=== PATIENT | male | born 1960 | race African-American/Black ===

== ENCOUNTER 2021-08-25 08:18 | Inpatient (IN) | payer MEDICAID, OTHER ==
[~2021-08-25] VITALS: Ht 182.9 cm; Wt 103.4 kg
[2021-08-25] MEDS ORDERED: SODIUM CHLORIDE 0.9% 1,000 ML IV ONE ×2 (09:15→10:45)
[2021-08-25 09:39] LABS: HEMATOCRIT. 36.5 % (42.0-52.0); HEMOGLOBIN. 11.4 g/dL (14.0-18.0); MEAN CORPUSCULAR HEMOGLOBIN 26.3 pg (28.0-32.0); MEAN CORPUSCULAR VOLUME 83.8 fL (80.0-94.0); MEAN PLATELET VOLUME 7.9 fl (7.4-10.4); PLATELET 559 x1000/uL (130-400); RED BLOOD CELL COUNT 4.35 mill/uL (4.7-6.1); RED CELL DISTRIBUTION WIDTH 15.2 % (11.6-14.6)
[2021-08-25 09:46] LABS: CHLORIDE 108 mEq/L (98-107)
[2021-08-25 10:27] LABS: PLATELET ESTIMATE INCREASED
[2021-08-25] MEDS ORDERED: MAGNESIUM/ALUMINUM HYDROXIDE/SIMETHICONE 30ML UDC PO PRN (12:15)
[2021-08-25] MEDS ORDERED: NITROGLYCERIN 0.4MG TABLET SL SL PRN (12:15)
[2021-08-25] MEDS ORDERED: TRAMADOL 50MG TABLET PO PRN (12:15)
[2021-08-25] MEDS ORDERED: ACETAMINOPHEN 325MG TABLET PO PRN (12:15)
[2021-08-25] MEDS ORDERED: CLONIDINE 0.1MG TABLET PO PRN (12:15)
[2021-08-25] MEDS ORDERED: GUAIFENESIN 200MG/10ML SUGAR FREE UDC PO PRN (12:15)
[2021-08-25] MEDS ORDERED: ONDANSETRON HCL 4MG/2ML INJ IV PRN (12:15)
[2021-08-25] MEDS ORDERED: SODIUM CHLORIDE 0.9% 1,000 ML IV SCH (12:15)
[2021-08-25] MEDS ORDERED: KETOROLAC 15MG/ML VIAL IV PRN (12:15)
[2021-08-25] MEDS ORDERED: IPRATROPIUM/ALBUTEROL 0.5-3(2.5)MG/3ML NEB NEB PRN (12:15)
[2021-08-25 12:59] LABS: BG BASE EXCESS 5.3 mmol/L (-2.0-2.0); BG CARBOXYHEMOGLOBIN 0.3 % (0.5-1.5); BG FRACTION INSPIRED OXYGEN 28; BG HCO3 ACT 30.8 mmol/L (22.0-26.0); BG METHEMOGLOBIN 0.3 % (0.0-1.5); BG OXYHEMOGLOBIN 95.4 % (94.0-97.0); BG PCO2 49.4 mmHg (35.0-45.0); BG PH 7.413 (7.350-7.450); BG PO2 84.6 mmHg (75.0-100.0); BG SAMPLE SITE LEFT BRACHIAL; BG TOTAL HEMOGLOBIN 11.9 g/dL (12.0-18.0); BG VENT MODE NASAL CANNULA
[2021-08-25] MEDS ORDERED: AZITHROMYCIN 500 MG in DEXT 5% WATER 250 ML IV SCH (13:00)
[2021-08-25 13:08] LABS: TOTAL IRON BINDING CAPACITY 178 ug/dL (250-450)
[2021-08-25] MEDS ORDERED: PAMIDRONATE DISODIUM 90 MG in SODIUM CHLORIDE 0.9% 500 ML IV ONE (13:30)
[2021-08-25 14:49] LABS: FOLIC ACID (FOLATE) SERUM 11.5 ng/mL (>5.38)
[2021-08-25] MEDS ORDERED: CEFTRIAXONE 1 G PREMIX 50 ML IV SCH (15:00)
[2021-08-25 15:09] LABS: CREATINE KINASE 97 IU/L (39-308); CREATINE KINASE MB FRACTION < 1.0 ng/mL (0.5-3.6)
[2021-08-25] MEDS: SODIUM CHLORIDE 0.9% 1,000 ML IV SCH (15:24)
[2021-08-25 15:59] LABS: *AMPHETAMINES SCREEN URINE NEGATIVE (NEGATIVE)
[2021-08-25 16:00] LABS: *BARBITURATES SCREEN URINE NEGATIVE (NEGATIVE); *BENZODIAZEPINES SCREEN URINE NEGATIVE (NEGATIVE); *COCAINE SCREEN URINE NEGATIVE (NEGATIVE); CANNABINOID URINE SCREEN NEGATIVE (NEGATIVE); METHADONE URINE SCREEN NEGATIVE (NEGATIVE); OPIATES URINE SCREEN NEGATIVE (NEGATIVE); PHENCYCLIDINE URINE SCREEN NEGATIVE (NEGATIVE)
[2021-08-25] MEDS ORDERED: NALOXONE HCL 0.4MG/ML VIAL IV PRN (16:00)
[2021-08-25] MEDS ORDERED: SODIUM CHLORIDE 0.9% 1000ML BAG (SEPSIS BOLUS) IV NR (17:00)
[2021-08-25] MEDS ORDERED: ENOXAPARIN 40MG/0.4ML SYR SUBCUT SCH (18:00)
[2021-08-25 18:50] VITALS: BP 125/63
[2021-08-25 20:00] VITALS: BP_SYST 100; BP_SYST 125; BP_DIAS 62; BP_DIAS 63
[2021-08-25] MEDS: ASCORBIC ACID 500 MG TABLET PO SCH (22:29)
[2021-08-25] MEDS: FAMOTIDINE 20MG TABLET PO SCH (22:29)
[2021-08-26] VITALS (7 sets, daily range): BP systolic 100–147; BP diastolic 60–90
[2021-08-26] MEDS: ENOXAPARIN 40MG/0.4ML SYR SUBCUT SCH (05:12)
[2021-08-26] MEDS: CHOLECALCIFEROL (D3) 1000 UNIT TABLET PO SCH (09:32)
[2021-08-26] MEDS: ASCORBIC ACID 500 MG TABLET PO SCH ×2 (09:33→21:04)
[2021-08-26] MEDS: FAMOTIDINE 20MG TABLET PO SCH ×2 (09:33→20:16)
[2021-08-26] MEDS: DOCUSATE SODIUM 100MG CAPSULE PO PRN (09:33)
[2021-08-26] MEDS: ASPIRIN 325MG EC TABLET PO SCH (09:33)
[2021-08-26] MEDS: ZINC SULFATE 220 MG ( 50 ) CAPSULE PO SCH (09:38)
[2021-08-26] MEDS ORDERED: INFLUENZA VACCINE 05/PF 0.5 ML SYRINGE IM ONE (11:00)
[2021-08-26 11:09] LABS: HEMATOCRIT. 32.6 % (42.0-52.0); HEMOGLOBIN. 10.4 g/dL (14.0-18.0); MEAN CORPUSCULAR HEMOGLOBIN 26.5 pg (28.0-32.0); MEAN CORPUSCULAR VOLUME 82.9 fL (80.0-94.0); MEAN PLATELET VOLUME 8.4 fl (7.4-10.4); PLATELET 504 x1000/uL (130-400); RED BLOOD CELL COUNT 3.93 mill/uL (4.7-6.1); RED CELL DISTRIBUTION WIDTH 15.6 % (11.6-14.6)
[2021-08-26 11:16] LABS: CHLORIDE 114 mEq/L (98-107)
[2021-08-26 11:23] LABS: PHOSPHORUS 1.9 mg/dL (2.5-4.9)
[2021-08-26 11:25] LABS: CREATINE KINASE 132 IU/L (39-308)
[2021-08-26 11:26] LABS: CREATINE KINASE MB FRACTION < 1.0 ng/mL (0.5-3.6)
[2021-08-26] MEDS: SODIUM CHLORIDE 0.9% 1,000 ML IV SCH ×2 (13:35→21:55)
[2021-08-26] MEDS: CEFTRIAXONE 1,000 MG in DEXTROSE 5% WATER 50 ML IV SCH (13:36)
[2021-08-26] MEDS: AZITHROMYCIN 500 MG in DEXT 5% WATER 250 ML IV SCH (13:36)
[2021-08-26 16:11] LABS: PLATELET ESTIMATE INCREASED
[2021-08-27] VITALS: BP 108/77
[2021-08-27 04:00] VITALS: BP 101/75
[2021-08-27] MEDS: ENOXAPARIN 40MG/0.4ML SYR SUBCUT SCH (05:25)
[2021-08-27 07:09] LABS: CHLORIDE 117 mEq/L (98-107)
[2021-08-27 07:14] LABS: PHOSPHORUS 1.4 mg/dL (2.5-4.9)
[2021-08-27 08:00] VITALS: BP 112/72
[2021-08-27 08:08] LABS: HEMATOCRIT. 32.3 % (42.0-52.0); HEMOGLOBIN. 10.1 g/dL (14.0-18.0); MEAN CORPUSCULAR HEMOGLOBIN 25.9 pg (28.0-32.0); MEAN CORPUSCULAR VOLUME 82.6 fL (80.0-94.0); MEAN PLATELET VOLUME 8.6 fl (7.4-10.4); PLATELET 447 x1000/uL (130-400); RED BLOOD CELL COUNT 3.91 mill/uL (4.7-6.1); RED CELL DISTRIBUTION WIDTH 15.3 % (11.6-14.6)
[2021-08-27] MEDS ORDERED: POTASSIUM CHLORIDE INJ 40 MEQ in DEXT 5% WATER 250 ML IV ONE (08:45)
[2021-08-27] MEDS: CHOLECALCIFEROL (D3) 1000 UNIT TABLET PO SCH (09:00)
[2021-08-27] MEDS: ASPIRIN 325MG EC TABLET PO SCH (09:00)
[2021-08-27] MEDS: ZINC SULFATE 220 MG ( 50 ) CAPSULE PO SCH (09:00)
[2021-08-27] MEDS: FAMOTIDINE 20MG TABLET PO SCH ×2 (09:00→21:09)
[2021-08-27] MEDS: SODIUM CHLORIDE 0.45% 1,000 ML IV SCH ×2 (09:00→16:31)
[2021-08-27] MEDS: ASCORBIC ACID 500 MG TABLET PO SCH ×2 (09:00→21:09)
[2021-08-27] MEDS ORDERED: BARIUM SULFATE 176 GM SUSP.RECON ONE (09:27)
[2021-08-27] MEDS ORDERED: SODIUM CHLORIDE 0.45% 1,000 ML IV SCH (09:30)
[2021-08-27] MEDS ORDERED: MAGNESIUM 2 G PREMIX 50 ML IV NR (11:00)
[2021-08-27] MEDS ORDERED: POTASSIUM PHOS,M-BASIC-D-BASIC 30 MMOL in DEXT 5% WATER 500 ML IV NR (11:00)
[2021-08-27 11:08] LABS: PLATELET ESTIMATE SLIGHTLY INCREASED
[2021-08-27 12:00] VITALS: BP 120/80
[2021-08-27 16:00] VITALS: BP 128/88
[2021-08-27] MEDS: CEFTRIAXONE 1,000 MG in DEXTROSE 5% WATER 50 ML IV SCH (16:30)
[2021-08-27] MEDS: AZITHROMYCIN 500 MG in DEXT 5% WATER 250 ML IV SCH (18:28)
[2021-08-27] MEDS: DILTIAZEM HCL 30MG TABLET PO SCH (18:34)
[2021-08-27] MEDS: KCL 20MEQ/100ML PREMIX 100 ML IV SCH (19:48)
[2021-08-27 20:00] VITALS: BP 109/70
[2021-08-27] MEDS: ACETAMINOPHEN 325MG TABLET PO PRN (21:09)
[2021-08-27] MEDS: ZOLPIDEM TARTRATE 5MG TABLET PO PRN (22:19)
[2021-08-28] VITALS: BP 115/66
[2021-08-28] MEDS: DILTIAZEM HCL 30MG TABLET PO SCH ×3 (00:16→12:00)
[2021-08-28] MEDS: SODIUM CHLORIDE 0.45% 1,000 ML IV SCH ×3 (00:22→17:45)
[2021-08-28 04:00] VITALS: BP 108/74
[2021-08-28] MEDS: ENOXAPARIN 40MG/0.4ML SYR SUBCUT SCH (06:01)
[2021-08-28] MEDS: KCL 20MEQ/100ML PREMIX 100 ML IV SCH (06:46)
[2021-08-28 07:16] LABS: CHLORIDE 115 mEq/L (98-107)
[2021-08-28 07:25] LABS: HEMATOCRIT. 31.9 % (42.0-52.0); HEMOGLOBIN. 10.2 g/dL (14.0-18.0); MEAN CORPUSCULAR HEMOGLOBIN 26.4 pg (28.0-32.0); MEAN CORPUSCULAR VOLUME 82.5 fL (80.0-94.0); MEAN PLATELET VOLUME 8.6 fl (7.4-10.4); PLATELET 388 x1000/uL (130-400); RED BLOOD CELL COUNT 3.87 mill/uL (4.7-6.1); RED CELL DISTRIBUTION WIDTH 15.8 % (11.6-14.6)
[2021-08-28 07:40] LABS: PHOSPHORUS 2.2 mg/dL (2.5-4.9)
[2021-08-28 08:00] VITALS: BP 120/70
[2021-08-28] MEDS ORDERED: ASPIRIN 81MG EC TABLET PO SCH (09:00)
[2021-08-28] MEDS: ASCORBIC ACID 500 MG TABLET PO SCH ×2 (09:06→20:45)
[2021-08-28] MEDS: CHOLECALCIFEROL (D3) 1000 UNIT TABLET PO SCH (09:06)
[2021-08-28] MEDS: FAMOTIDINE 20MG TABLET PO SCH ×2 (09:06→20:45)
[2021-08-28] MEDS: ZINC SULFATE 220 MG ( 50 ) CAPSULE PO SCH (09:06)
[2021-08-28] MEDS ORDERED: POTASSIUM CHLORIDE 20MEQ/PACKET PO SCH (10:00)
[2021-08-28] MEDS ORDERED: POTASSIUM PHOS,M-BASIC-D-BASIC 15 MMOL in DEXT 5% WATER 245 ML IV SCH (11:00)
[2021-08-28 12:00] VITALS: BP 108/64
[2021-08-28] MEDS: CEFTRIAXONE 1,000 MG in DEXTROSE 5% WATER 50 ML IV SCH (15:47)
[2021-08-28 16:00] VITALS: BP 109/66
[2021-08-28] MEDS: ENOXAPARIN 80MG/0.8ML SYR SUBCUT SCH (16:48)
[2021-08-28 17:08] LABS: PLATELET ESTIMATE NORMAL
[2021-08-28] MEDS: AZITHROMYCIN 500 MG in DEXT 5% WATER 250 ML IV SCH (17:44)
[2021-08-28] MEDS: DILTIAZEM HCL 60MG TABLET PO SCH (18:00)
[2021-08-28 20:00] VITALS: BP_SYST 145
[2021-08-28] MEDS: ZOLPIDEM TARTRATE 5MG TABLET PO PRN (20:45)
[2021-08-29] VITALS: BP 121/68
[2021-08-29] MEDS: DILTIAZEM HCL 60MG TABLET PO SCH ×4 (00:30→18:00)
[2021-08-29 04:00] VITALS: BP 123/64
[2021-08-29] MEDS: ENOXAPARIN 80MG/0.8ML SYR SUBCUT SCH ×2 (05:28→18:19)
[2021-08-29] MEDS: SODIUM CHLORIDE 0.45% 1,000 ML IV SCH ×3 (05:41→17:00)
[2021-08-29 08:00] VITALS: BP 110/73
[2021-08-29] MEDS: ZINC SULFATE 220 MG ( 50 ) CAPSULE PO SCH (09:00)
[2021-08-29] MEDS: FAMOTIDINE 20MG TABLET PO SCH ×2 (09:00→19:48)
[2021-08-29] MEDS: ASCORBIC ACID 500 MG TABLET PO SCH ×2 (09:00→19:48)
[2021-08-29] MEDS: CHOLECALCIFEROL (D3) 1000 UNIT TABLET PO SCH (09:00)
[2021-08-29 11:53] LABS: BASOPHILS % 0.2 % (0.0-2.0); EOSINOPHILS % 0.6 % (0.0-5.0); HEMATOCRIT. 31.8 % (42.0-52.0); HEMOGLOBIN. 9.9 g/dL (14.0-18.0); LYMPHOCYTES % 7.3 % (20.0-50.0); MEAN CORPUSCULAR HEMOGLOBIN 25.4 pg (28.0-32.0); MEAN CORPUSCULAR VOLUME 81.8 fL (80.0-94.0); MEAN PLATELET VOLUME 8.5 fl (7.4-10.4); MONOCYTES % 9.1 % (2.0-8.0); NEUTROPHILS % 82.8 % (40.0-76.0); PLATELET 387 x1000/uL (130-400); RED BLOOD CELL COUNT 3.89 mill/uL (4.7-6.1); RED CELL DISTRIBUTION WIDTH 15.8 % (11.6-14.6)
[2021-08-29 12:00] VITALS: BP 106/72
[2021-08-29 12:06] LABS: CHLORIDE 114 mEq/L (98-107)
[2021-08-29 12:12] LABS: PHOSPHORUS 1.7 mg/dL (2.5-4.9)
[2021-08-29] MEDS: CEFTRIAXONE 1,000 MG in DEXTROSE 5% WATER 50 ML IV SCH (14:01)
[2021-08-29 16:00] VITALS: BP 112/75
[2021-08-29] MEDS: AZITHROMYCIN 500 MG in DEXT 5% WATER 250 ML IV SCH (18:19)
[2021-08-29 20:00] VITALS: BP 112/59
[2021-08-29] MEDS ORDERED: POTASSIUM PHOS,M-BASIC-D-BASIC 30 MMOL in DEXT 5% WATER 500 ML IV NR (21:00)
[2021-08-30] VITALS: BP 105/68
[2021-08-30 00:34] LABS: CLARITY URINE CLEAR (CLEAR); COLOR URINE YELLOW (YELLOW); KETONES URINE TRACE (NEGATIVE); LEUKOCYTE ESTERASE URINE NEGATIVE (NEGATIVE); NITRITE URINE NEGATIVE (NEGATIVE); OCCULT BLOOD URINE NEGATIVE (NEGATIVE); PROTEIN URINE TRACE (NEGATIVE); SPECIFIC GRAVITY URINE 1.022 (1.005-1.030)
[2021-08-30 04:00] VITALS: BP 117/62
[2021-08-30] MEDS: DILTIAZEM HCL 60MG TABLET PO SCH ×4 (05:44→16:36)
[2021-08-30 08:00] VITALS: BP 103/56
[2021-08-30 08:05] LABS: INR 1.4; PROTHROMBIN TIME 14.4 sec (9.6-11.0)
[2021-08-30 08:07] LABS: HEMOGLOBIN. 9.8 g/dL (14.0-18.0); MEAN CORPUSCULAR HEMOGLOBIN 26.1 pg (28.0-32.0); MEAN CORPUSCULAR VOLUME 82.3 fL (80.0-94.0); MEAN PLATELET VOLUME 8.5 fl (7.4-10.4); PLATELET 384 x1000/uL (130-400); RED BLOOD CELL COUNT 3.77 mill/uL (4.7-6.1); RED CELL DISTRIBUTION WIDTH 15.9 % (11.6-14.6)
[2021-08-30 08:17] LABS: CHLORIDE 109 mEq/L (98-107)
[2021-08-30] MEDS: ENOXAPARIN 80MG/0.8ML SYR SUBCUT SCH ×2 (08:30→17:40)
[2021-08-30] MEDS: ZINC SULFATE 220 MG ( 50 ) CAPSULE PO SCH (08:30)
[2021-08-30] MEDS: ASCORBIC ACID 500 MG TABLET PO SCH ×2 (08:31→21:51)
[2021-08-30] MEDS: FAMOTIDINE 20MG TABLET PO SCH ×2 (08:31→21:51)
[2021-08-30] MEDS: CHOLECALCIFEROL (D3) 1000 UNIT TABLET PO SCH (08:31)
[2021-08-30 08:34] LABS: PHOSPHORUS 1.8 mg/dL (2.5-4.9)
[2021-08-30] MEDS: SODIUM CHLORIDE 0.45% 1,000 ML IV SCH ×3 (09:00→17:40)
[2021-08-30] MEDS ORDERED: POTASSIUM PHOS,M-BASIC-D-BASIC 15 MMOL in DEXT 5% WATER 245 ML IV SCH (11:00)
[2021-08-30 12:00] VITALS: BP 121/82
[2021-08-30 12:13] LABS: PLATELET ESTIMATE NORMAL
[2021-08-30] MEDS ORDERED: BARIUM SULFATE 176 GM SUSP.RECON ONE (13:03)
[2021-08-30] MEDS: CEFTRIAXONE 1,000 MG in DEXTROSE 5% WATER 50 ML IV SCH (15:08)
[2021-08-30 16:00] VITALS: BP 119/82
[2021-08-30 20:04] VITALS: BP 118/69
[2021-08-31] VITALS (7 sets, daily range): BP systolic 100–148; BP diastolic 56–69
[2021-08-31] MEDS: SODIUM CHLORIDE 0.45% 1,000 ML IV SCH ×3 (02:05→18:35)
[2021-08-31] MEDS: DILTIAZEM HCL 60MG TABLET PO SCH ×4 (02:05→18:33)
[2021-08-31] MEDS: ENOXAPARIN 80MG/0.8ML SYR SUBCUT SCH ×2 (05:49→18:33)
[2021-08-31 08:29] LABS: HEMATOCRIT. 29.3 % (42.0-52.0); HEMOGLOBIN. 9.6 g/dL (14.0-18.0); MEAN CORPUSCULAR HEMOGLOBIN 26.7 pg (28.0-32.0); MEAN CORPUSCULAR VOLUME 81.3 fL (80.0-94.0); MEAN PLATELET VOLUME 8.9 fl (7.4-10.4); PLATELET 354 x1000/uL (130-400); RED CELL DISTRIBUTION WIDTH 15.6 % (11.6-14.6)
[2021-08-31 09:19] LABS: CHLORIDE 108 mEq/L (98-107)
[2021-08-31 09:25] LABS: PHOSPHORUS 1.4 mg/dL (2.5-4.9)
[2021-08-31] MEDS: CHOLECALCIFEROL (D3) 1000 UNIT TABLET PO SCH (10:22)
[2021-08-31] MEDS: ZINC SULFATE 220 MG ( 50 ) CAPSULE PO SCH (10:22)
[2021-08-31] MEDS: FAMOTIDINE 20MG TABLET PO SCH ×2 (10:22→22:00)
[2021-08-31] MEDS: THIAMINE HCL 100MG TABLET PO SCH (10:22)
[2021-08-31] MEDS: ASCORBIC ACID 500 MG TABLET PO SCH ×2 (10:22→22:00)
[2021-08-31] MEDS ORDERED: POTASSIUM PHOS,M-BASIC-D-BASIC 30 MMOL in SODIUM CHLORIDE 0.9% 500 ML IV SCH (12:00)
[2021-08-31] MEDS: ACETAMINOPHEN 325MG TABLET PO PRN (12:54)
[2021-08-31] MEDS: DIGOXIN 500MCG/2ML AMP IV PRN (14:50)
[2021-08-31 22:43] LABS: PLATELET ESTIMATE NORMAL
[2021-09-01] VITALS: BP 131/76
[2021-09-01] MEDS: DILTIAZEM HCL 60MG TABLET PO SCH ×4 (00:38→19:08)
[2021-09-01] MEDS: SODIUM CHLORIDE 0.45% 1,000 ML IV SCH ×2 (00:39→10:07)
[2021-09-01 04:00] VITALS: BP 119/52
[2021-09-01] MEDS: ENOXAPARIN 80MG/0.8ML SYR SUBCUT SCH ×2 (06:37→19:09)
[2021-09-01 07:52] LABS: BASOPHILS % 0.4 % (0.0-2.0); EOSINOPHILS % 0.9 % (0.0-5.0); HEMATOCRIT. 31.3 % (42.0-52.0); HEMOGLOBIN. 10.2 g/dL (14.0-18.0); LYMPHOCYTES % 7.8 % (20.0-50.0); MEAN CORPUSCULAR HEMOGLOBIN 26.4 pg (28.0-32.0); MEAN CORPUSCULAR VOLUME 81.2 fL (80.0-94.0); MEAN PLATELET VOLUME 9.2 fl (7.4-10.4); NEUTROPHILS % 79.9 % (40.0-76.0); PLATELET 371 x1000/uL (130-400); RED BLOOD CELL COUNT 3.85 mill/uL (4.7-6.1); RED CELL DISTRIBUTION WIDTH 15.6 % (11.6-14.6)
[2021-09-01 08:00] VITALS: BP 107/63
[2021-09-01 08:02] LABS: CHLORIDE 106 mEq/L (98-107)
[2021-09-01 08:10] LABS: PHOSPHORUS 1.2 mg/dL (2.5-4.9)
[2021-09-01] MEDS: CHOLECALCIFEROL (D3) 1000 UNIT TABLET PO SCH (10:07)
[2021-09-01] MEDS: ZINC SULFATE 220 MG ( 50 ) CAPSULE PO SCH (10:08)
[2021-09-01] MEDS: ASCORBIC ACID 500 MG TABLET PO SCH ×2 (10:08→21:00)
[2021-09-01] MEDS: FAMOTIDINE 20MG TABLET PO SCH ×2 (10:08→21:00)
[2021-09-01] MEDS: THIAMINE HCL 100MG TABLET PO SCH (10:08)
[2021-09-01 12:00] VITALS: BP 124/75
[2021-09-01] MEDS ORDERED: POTASSIUM PHOS,M-BASIC-D-BASIC 30 MMOL in SODIUM CHLORIDE 0.9% 500 ML IV SCH (14:00)
[2021-09-01 16:00] VITALS: BP 125/79
[2021-09-01 20:00] VITALS: BP 124/66
[2021-09-02] VITALS: BP 137/88
[2021-09-02] MEDS: DILTIAZEM HCL 60MG TABLET PO SCH ×4 (00:31→18:05)
[2021-09-02] MEDS: SODIUM CHLORIDE 0.45% 1,000 ML IV SCH (00:31)
[2021-09-02 04:00] VITALS: BP 129/70
[2021-09-02] MEDS: ENOXAPARIN 80MG/0.8ML SYR SUBCUT SCH ×2 (06:06→18:06)
[2021-09-02 06:43] LABS: HEMATOCRIT. 27.7 % (42.0-52.0); HEMOGLOBIN. 9.1 g/dL (14.0-18.0); MEAN CORPUSCULAR HEMOGLOBIN 26.7 pg (28.0-32.0); MEAN CORPUSCULAR VOLUME 81.4 fL (80.0-94.0); MEAN PLATELET VOLUME 8.8 fl (7.4-10.4); PLATELET 353 x1000/uL (130-400); RED BLOOD CELL COUNT 3.41 mill/uL (4.7-6.1); RED CELL DISTRIBUTION WIDTH 15.8 % (11.6-14.6)
[2021-09-02 07:49] LABS: CHLORIDE 106 mEq/L (98-107)
[2021-09-02 08:00] VITALS: BP 119/77
[2021-09-02 08:05] LABS: PHOSPHORUS 1.5 mg/dL (2.5-4.9)
[2021-09-02] MEDS: ASCORBIC ACID 500 MG TABLET PO SCH ×2 (09:55→21:20)
[2021-09-02] MEDS: ZINC SULFATE 220 MG ( 50 ) CAPSULE PO SCH (09:55)
[2021-09-02] MEDS: FAMOTIDINE 20MG TABLET PO SCH ×2 (09:55→21:20)
[2021-09-02] MEDS: THIAMINE HCL 100MG TABLET PO SCH (09:55)
[2021-09-02] MEDS ORDERED: CEFAZOLIN 1000MG PREMIX 50 ML IV NR (10:00)
[2021-09-02] MEDS ORDERED: POTASSIUM PHOS,M-BASIC-D-BASIC 30 MMOL in SODIUM CHLORIDE 0.9% 500 ML IV NR (11:00)
[2021-09-02 12:00] VITALS: BP 129/78
[2021-09-02] MEDS: DILTIAZEM HCL 5MG/ML 5ML VIAL IV PRN (14:14)
[2021-09-02 16:00] VITALS: BP 115/68
[2021-09-02 20:00] VITALS: BP 106/62
[2021-09-02 21:06] LABS: PLATELET ESTIMATE NORMAL
[2021-09-03] VITALS: BP 105/66
[2021-09-03] MEDS: SODIUM CHLORIDE 0.45% 1,000 ML IV SCH ×3 (02:47→23:38)
[2021-09-03 04:00] VITALS: BP 131/72
[2021-09-03] MEDS: DILTIAZEM HCL 60MG TABLET PO SCH ×4 (05:28→18:00)
[2021-09-03] MEDS: ENOXAPARIN 80MG/0.8ML SYR SUBCUT SCH ×2 (06:00→18:19)
[2021-09-03 07:05] LABS: INR 1.1; PROTHROMBIN TIME 12.2 sec (9.6-11.0)
[2021-09-03 07:09] LABS: CHLORIDE 105 mEq/L (98-107)
[2021-09-03 07:16] LABS: PHOSPHORUS 1.5 mg/dL (2.5-4.9)
[2021-09-03 07:28] LABS: HEMATOCRIT 28.5 % (42.0-52.0); HEMOGLOBIN 9.3 g/dL (14.0-18.0); MEAN CORPUSCULAR HEMOGLOBIN 26.5 pg (28.0-32.0); MEAN CORPUSCULAR VOLUME 81.2 fL (80.0-94.0); PLATELET 407 x1000/uL (130-400); RED BLOOD CELL COUNT 3.51 mill/uL (4.7-6.1); RED CELL DISTRIBUTION WIDTH 15.9 % (11.6-14.6)
[2021-09-03 08:00] VITALS: BP 134/65
[2021-09-03] MEDS: ZINC SULFATE 220 MG ( 50 ) CAPSULE PO SCH (08:23)
[2021-09-03] MEDS: THIAMINE HCL 100MG TABLET PO SCH (08:24)
[2021-09-03] MEDS: ASCORBIC ACID 500 MG TABLET PO SCH ×3 (08:24→21:06)
[2021-09-03] MEDS: FAMOTIDINE 20MG TABLET PO SCH ×3 (08:24→21:06)
[2021-09-03] MEDS: DILTIAZEM HCL 5MG/ML 5ML VIAL IV PRN (09:14)
[2021-09-03] MEDS ORDERED: CEFAZOLIN 1000MG PREMIX 50 ML IV NR (10:00)
[2021-09-03] MEDS ORDERED: CEFAZOLIN 1000MG PREMIX 50 ML IV SCH (10:00)
[2021-09-03] MEDS ORDERED: SODIUM PHOS,M-BASIC-D-BASIC 30 MM in DEXT 5% WATER 500 ML IV NR (10:30)
[2021-09-03] MEDS ORDERED: PAMIDRONATE DISODIUM 60 MG in SODIUM CHLORIDE 0.9% 500 ML IV NR (10:30)
[2021-09-03] MEDS: DIGOXIN 500MCG/2ML AMP IV PRN (12:29)
[2021-09-03 13:00] VITALS: BP 112/57
[2021-09-03 16:00] VITALS: BP 98/59
[2021-09-03] MEDS ORDERED: DILTIAZEM HCL 5MG/ML 5ML VIAL IV SCH ×2 (16:00→17:15)
[2021-09-03] MEDS ORDERED: DIGOXIN 500MCG/2ML AMP IV SCH (16:00)
[2021-09-03] MEDS ORDERED: AMIODARONE HCL 150 MG in DEXT 5% WATER 100 ML IV ONE (17:15)
[2021-09-03 20:00] VITALS: BP 132/69
[2021-09-04] VITALS (8 sets, daily range): BP systolic 100–125; BP diastolic 53–76
[2021-09-04] MEDS: DILTIAZEM HCL 60MG TABLET PO SCH ×2 (05:20)
[2021-09-04] MEDS: ENOXAPARIN 80MG/0.8ML SYR SUBCUT SCH ×2 (05:20→18:15)
[2021-09-04 08:45] LABS: HEMATOCRIT. 30.6 % (42.0-52.0); HEMOGLOBIN. 9.7 g/dL (14.0-18.0); MEAN CORPUSCULAR VOLUME 82.2 fL (80.0-94.0); MEAN PLATELET VOLUME 9.1 fl (7.4-10.4); PLATELET 439 x1000/uL (130-400); RED BLOOD CELL COUNT 3.72 mill/uL (4.7-6.1); RED CELL DISTRIBUTION WIDTH 16.3 % (11.6-14.6)
[2021-09-04 08:56] LABS: INR 1.2; PROTHROMBIN TIME 12.3 sec (9.6-11.0)
[2021-09-04] MEDS: FAMOTIDINE 20MG TABLET PO SCH ×2 (09:00→21:37)
[2021-09-04] MEDS: ZINC SULFATE 220 MG ( 50 ) CAPSULE PO SCH (09:00)
[2021-09-04] MEDS: ASCORBIC ACID 500 MG TABLET PO SCH ×2 (09:00→21:36)
[2021-09-04] MEDS: THIAMINE HCL 100MG TABLET PO SCH (09:00)
[2021-09-04 09:08] LABS: CHLORIDE 102 mEq/L (98-107)
[2021-09-04 09:15] LABS: PHOSPHORUS 2.3 mg/dL (2.5-4.9)
[2021-09-04] MEDS ORDERED: AMIODARONE HCL 900 MG in DEXT 5% WATER 482 ML IV SCH (11:00)
[2021-09-04] MEDS ORDERED: SODIUM PHOS,M-BASIC-D-BASIC 30 MM in DEXT 5% WATER 500 ML IV SCH (11:00)
[2021-09-04] MEDS: DILTIAZEM HCL 5MG/ML 5ML VIAL IV SCH ×4 (11:46→21:36)
[2021-09-04] MEDS ORDERED: DILTIAZEM HCL 5MG/ML 5ML VIAL IV SCH (12:00)
[2021-09-04 16:28] LABS: PLATELET ESTIMATE SLIGHTLY INCREASED
[2021-09-04] MEDS ORDERED: PROPOFOL 200MG/20ML VIAL IV ONE (16:47)
[2021-09-04] MEDS ORDERED: CEFAZOLIN SODIUM 1000MG/VIAL ONE (16:53)
[2021-09-05] VITALS (12 sets, daily range): BP systolic 92–138; BP diastolic 55–99
[2021-09-05] MEDS: DILTIAZEM HCL 5MG/ML 5ML VIAL IV SCH ×2 (00:25→03:52)
[2021-09-05] MEDS: ENOXAPARIN 80MG/0.8ML SYR SUBCUT SCH ×2 (05:59→18:14)
[2021-09-05 06:11] LABS: CHLORIDE 101 mEq/L (98-107)
[2021-09-05 06:17] LABS: PHOSPHORUS 2.3 mg/dL (2.5-4.9)
[2021-09-05 06:19] LABS: HEMATOCRIT. 29.3 % (42.0-52.0); HEMOGLOBIN. 9.4 g/dL (14.0-18.0); MEAN CORPUSCULAR HEMOGLOBIN 25.8 pg (28.0-32.0); MEAN CORPUSCULAR VOLUME 80.7 fL (80.0-94.0); MEAN PLATELET VOLUME 8.5 fl (7.4-10.4); PLATELET 504 x1000/uL (130-400); RED BLOOD CELL COUNT 3.62 mill/uL (4.7-6.1); RED CELL DISTRIBUTION WIDTH 16.2 % (11.6-14.6)
[2021-09-05] MEDS: ASCORBIC ACID 500 MG TABLET PO SCH ×2 (09:22→21:31)
[2021-09-05] MEDS: ZINC SULFATE 220 MG ( 50 ) CAPSULE PO SCH (09:22)
[2021-09-05] MEDS: THIAMINE HCL 100MG TABLET PO SCH (09:22)
[2021-09-05] MEDS: FAMOTIDINE 20MG TABLET PO SCH ×2 (09:26→21:31)
[2021-09-05] MEDS: DILTIAZEM HCL 60MG TABLET PO SCH ×2 (09:27→18:15)
[2021-09-05 11:25] LABS: PLATELET ESTIMATE INCREASED
[2021-09-05] MEDS: SODIUM CHLORIDE 0.45% 1,000 ML IV SCH (12:00)
[2021-09-05] MEDS: POTASSIUM-SODIUM PHOSPHATE POWDER PACKET PO SCH ×2 (15:05→18:15)
[2021-09-05] MEDS: SODIUM CHLORIDE 0.9% 1,000 ML IV SCH (15:05)
[2021-09-05] MEDS: PREDNISONE 20MG TABLET PO SCH (15:05)
[2021-09-05] MEDS: FUROSEMIDE 20MG TABLET PO SCH (18:15)
[2021-09-06] VITALS (11 sets, daily range): BP systolic 90–114; BP diastolic 55–70
[2021-09-06] MEDS: DILTIAZEM HCL 60MG TABLET PO SCH ×2 (01:00→08:45)
[2021-09-06] MEDS: SODIUM CHLORIDE 0.9% 1,000 ML IV SCH ×3 (02:01→15:22)
[2021-09-06] MEDS: ENOXAPARIN 80MG/0.8ML SYR SUBCUT SCH ×2 (06:21→17:46)
[2021-09-06 06:52] LABS: HEMATOCRIT. 31.5 % (42.0-52.0); HEMOGLOBIN. 10.1 g/dL (14.0-18.0); MEAN CORPUSCULAR HEMOGLOBIN 26.5 pg (28.0-32.0); MEAN CORPUSCULAR VOLUME 82.4 fL (80.0-94.0); MEAN PLATELET VOLUME 8.5 fl (7.4-10.4); PLATELET 482 x1000/uL (130-400); RED BLOOD CELL COUNT 3.83 mill/uL (4.7-6.1); RED CELL DISTRIBUTION WIDTH 16.3 % (11.6-14.6)
[2021-09-06 06:54] LABS: CHLORIDE 103 mEq/L (98-107)
[2021-09-06] MEDS: FUROSEMIDE 20MG TABLET PO SCH ×2 (06:55→17:45)
[2021-09-06 07:05] LABS: PHOSPHORUS 2.9 mg/dL (2.5-4.9)
[2021-09-06] MEDS: PREDNISONE 20MG TABLET PO SCH (08:44)
[2021-09-06] MEDS: FAMOTIDINE 20MG TABLET PO SCH ×2 (08:44→20:34)
[2021-09-06] MEDS: THIAMINE HCL 100MG TABLET PO SCH (08:44)
[2021-09-06] MEDS: ASCORBIC ACID 500 MG TABLET PO SCH ×2 (08:44→20:34)
[2021-09-06] MEDS: ZINC SULFATE 220 MG ( 50 ) CAPSULE PO SCH (08:44)
[2021-09-06] MEDS: POTASSIUM-SODIUM PHOSPHATE POWDER PACKET PO SCH ×2 (08:45→17:45)
[2021-09-06 13:29] LABS: PLATELET ESTIMATE INCREASED
[2021-09-06] MEDS: DILTIAZEM HCL 30MG TABLET PO SCH ×2 (15:22→22:00)
[2021-09-07] VITALS (12 sets, daily range): BP systolic 89–120; BP diastolic 51–71
[2021-09-07] MEDS: ENOXAPARIN 80MG/0.8ML SYR SUBCUT SCH ×2 (05:18→18:02)
[2021-09-07] MEDS: DILTIAZEM HCL 30MG TABLET PO SCH ×3 (05:18→21:26)
[2021-09-07] MEDS: FUROSEMIDE 20MG TABLET PO SCH ×2 (05:18→18:02)
[2021-09-07 07:27] LABS: HEMATOCRIT. 29.1 % (42.0-52.0); HEMOGLOBIN. 9.3 g/dL (14.0-18.0); MEAN CORPUSCULAR HEMOGLOBIN 25.7 pg (28.0-32.0); MEAN CORPUSCULAR VOLUME 80.6 fL (80.0-94.0); MEAN PLATELET VOLUME 8.3 fl (7.4-10.4); PLATELET 590 x1000/uL (130-400); RED BLOOD CELL COUNT 3.61 mill/uL (4.7-6.1)
[2021-09-07 07:40] LABS: CHLORIDE 104 mEq/L (98-107)
[2021-09-07 07:49] LABS: PHOSPHORUS 1.8 mg/dL (2.5-4.9)
[2021-09-07] MEDS: POTASSIUM-SODIUM PHOSPHATE POWDER PACKET PO SCH ×2 (08:44→18:02)
[2021-09-07] MEDS: ZINC SULFATE 220 MG ( 50 ) CAPSULE PO SCH (08:44)
[2021-09-07] MEDS: FAMOTIDINE 20MG TABLET PO SCH ×2 (08:45→21:22)
[2021-09-07] MEDS: THIAMINE HCL 100MG TABLET PO SCH (08:46)
[2021-09-07] MEDS: ASCORBIC ACID 500 MG TABLET PO SCH ×2 (08:46→21:22)
[2021-09-07] MEDS: PREDNISONE 20MG TABLET PO SCH (08:46)
[2021-09-07] MEDS ORDERED: POTASSIUM-SODIUM PHOSPHATE POWDER PACKET PO SCH (13:45)
[2021-09-07 14:03] LABS: PLATELET ESTIMATE INCREASED
[2021-09-07] MEDS: SODIUM CHLORIDE 0.9% 1,000 ML IV SCH ×2 (15:36→18:03)
[2021-09-08] VITALS (15 sets, daily range): BP systolic 83–128; BP diastolic 48–77
[2021-09-08] MEDS: SODIUM CHLORIDE 0.9% 1,000 ML IV SCH ×2 (03:26→20:54)
[2021-09-08] MEDS: DILTIAZEM HCL 5MG/ML 5ML VIAL IV PRN (03:33)
[2021-09-08] MEDS: ACETAMINOPHEN 325MG TABLET PO PRN ×2 (04:22→20:53)
[2021-09-08] MEDS: DIGOXIN 500MCG/2ML AMP IV PRN ×3 (04:31→20:05)
[2021-09-08] MEDS ORDERED: DILTIAZEM HCL 5MG/ML 5ML VIAL IV NR (05:15)
[2021-09-08] MEDS ORDERED: SODIUM CHLORIDE 0.9% 250ML IV SOLN IV NR (05:15)
[2021-09-08] MEDS: FUROSEMIDE 20MG TABLET PO SCH ×2 (06:00→18:18)
[2021-09-08] MEDS: DILTIAZEM HCL 30MG TABLET PO SCH ×3 (06:00→22:00)
[2021-09-08] MEDS: ENOXAPARIN 80MG/0.8ML SYR SUBCUT SCH ×2 (06:24→18:19)
[2021-09-08 06:54] LABS: HEMOGLOBIN. 9.7 g/dL (14.0-18.0); MEAN CORPUSCULAR HEMOGLOBIN 25.1 pg (28.0-32.0); MEAN CORPUSCULAR VOLUME 80.4 fL (80.0-94.0); MEAN PLATELET VOLUME 7.9 fl (7.4-10.4); PLATELET 654 x1000/uL (130-400); RED BLOOD CELL COUNT 3.85 mill/uL (4.7-6.1); RED CELL DISTRIBUTION WIDTH 16.1 % (11.6-14.6)
[2021-09-08 07:08] LABS: CHLORIDE 103 mEq/L (98-107)
[2021-09-08 07:15] LABS: PHOSPHORUS 1.9 mg/dL (2.5-4.9)
[2021-09-08] MEDS: ZINC SULFATE 220 MG ( 50 ) CAPSULE PO SCH (08:35)
[2021-09-08] MEDS: FAMOTIDINE 20MG TABLET PO SCH ×2 (08:35→20:54)
[2021-09-08] MEDS: POTASSIUM-SODIUM PHOSPHATE POWDER PACKET PO SCH ×2 (08:35→18:18)
[2021-09-08] MEDS: PREDNISONE 20MG TABLET PO SCH (08:35)
[2021-09-08] MEDS: THIAMINE HCL 100MG TABLET PO SCH (08:35)
[2021-09-08] MEDS: ASCORBIC ACID 500 MG TABLET PO SCH ×2 (09:28→20:53)
[2021-09-08 10:10] LABS: VITAMIN D 1-25 DIHYDROXY 54.9 pg/mL (19.9-79.3)
[2021-09-08 13:30] LABS: PLATELET ESTIMATE INCREASED
[2021-09-09] VITALS (15 sets, daily range): BP systolic 88–152; BP diastolic 51–95
[2021-09-09] MEDS: SODIUM CHLORIDE 0.9% 1,000 ML IV SCH (00:10)
[2021-09-09] MEDS: ACETAMINOPHEN 325MG TABLET PO PRN (02:50)
[2021-09-09] MEDS: ENOXAPARIN 80MG/0.8ML SYR SUBCUT SCH ×2 (05:14→17:00)
[2021-09-09] MEDS: FUROSEMIDE 20MG TABLET PO SCH ×2 (05:14→17:01)
[2021-09-09] MEDS: DILTIAZEM HCL 30MG TABLET PO SCH ×3 (05:14→21:53)
[2021-09-09] MEDS: DILTIAZEM HCL 5MG/ML 5ML VIAL IV PRN ×2 (05:57→23:47)
[2021-09-09 07:05] LABS: HEMATOCRIT. 28.2 % (42.0-52.0); HEMOGLOBIN. 8.8 g/dL (14.0-18.0); MEAN CORPUSCULAR HEMOGLOBIN 25.4 pg (28.0-32.0); MEAN CORPUSCULAR VOLUME 81.2 fL (80.0-94.0); MEAN PLATELET VOLUME 7.5 fl (7.4-10.4); PLATELET 558 x1000/uL (130-400); RED BLOOD CELL COUNT 3.48 mill/uL (4.7-6.1); RED CELL DISTRIBUTION WIDTH 16.1 % (11.6-14.6)
[2021-09-09 07:21] LABS: CHLORIDE 103 mEq/L (98-107)
[2021-09-09 07:51] LABS: DIGOXIN 0.3 ng/mL (0.9-2.0)
[2021-09-09] MEDS: FAMOTIDINE 20MG TABLET PO SCH ×2 (08:27→21:48)
[2021-09-09] MEDS: ZINC SULFATE 220 MG ( 50 ) CAPSULE PO SCH (08:27)
[2021-09-09] MEDS: PREDNISONE 20MG TABLET PO SCH (08:27)
[2021-09-09] MEDS: THIAMINE HCL 100MG TABLET PO SCH (08:27)
[2021-09-09] MEDS: POTASSIUM-SODIUM PHOSPHATE POWDER PACKET PO SCH ×2 (08:27→17:00)
[2021-09-09] MEDS: ASCORBIC ACID 500 MG TABLET PO SCH ×2 (08:28→21:48)
[2021-09-09] MEDS: DIGOXIN 125MCG TABLET PO SCH (17:01)
[2021-09-09 19:27] LABS: PLATELET ESTIMATE INCREASED
[2021-09-10] VITALS (12 sets, daily range): BP systolic 89–154; BP diastolic 45–91
[2021-09-10] MEDS: DIGOXIN 500MCG/2ML AMP IV PRN (02:02)
[2021-09-10] MEDS: DILTIAZEM HCL 125 MG in DEXT 5% WATER 100 ML IV SCH ×2 (04:27→17:55)
[2021-09-10] MEDS: FUROSEMIDE 20MG TABLET PO SCH ×2 (05:40→17:55)
[2021-09-10] MEDS: ENOXAPARIN 80MG/0.8ML SYR SUBCUT SCH ×2 (06:13→17:56)
[2021-09-10] MEDS: SODIUM CHLORIDE 0.9% 1,000 ML IV SCH (06:14)
[2021-09-10 06:29] LABS: HEMATOCRIT. 26.2 % (42.0-52.0); HEMOGLOBIN. 8.4 g/dL (14.0-18.0); MEAN CORPUSCULAR HEMOGLOBIN 25.9 pg (28.0-32.0); MEAN CORPUSCULAR VOLUME 80.8 fL (80.0-94.0); MEAN PLATELET VOLUME 7.8 fl (7.4-10.4); PLATELET 584 x1000/uL (130-400); RED BLOOD CELL COUNT 3.24 mill/uL (4.7-6.1); RED CELL DISTRIBUTION WIDTH 16.7 % (11.6-14.6)
[2021-09-10 06:34] LABS: CHLORIDE 102 mEq/L (98-107)
[2021-09-10 06:43] LABS: PHOSPHORUS 1.8 mg/dL (2.5-4.9)
[2021-09-10 08:09] LABS: VITAMIN D 25-OH 26.7 ng/mL (30.0-100.0)
[2021-09-10] MEDS: THIAMINE HCL 100MG TABLET PO SCH (09:15)
[2021-09-10] MEDS: ASCORBIC ACID 500 MG TABLET PO SCH ×2 (09:15→20:43)
[2021-09-10] MEDS: POTASSIUM-SODIUM PHOSPHATE POWDER PACKET PO SCH ×2 (09:15→17:55)
[2021-09-10] MEDS: PREDNISONE 20MG TABLET PO SCH (09:15)
[2021-09-10] MEDS: ZINC SULFATE 220 MG ( 50 ) CAPSULE PO SCH (09:15)
[2021-09-10] MEDS: FAMOTIDINE 20MG TABLET PO SCH ×2 (09:15→20:43)
[2021-09-10] MEDS: DIGOXIN 125MCG TABLET PO SCH (17:55)
[2021-09-10 18:27] LABS: PLATELET ESTIMATE INCREASED
[2021-09-11] VITALS (12 sets, daily range): BP systolic 92–116; BP diastolic 52–68
[2021-09-11] MEDS: DILTIAZEM HCL 125 MG in DEXT 5% WATER 100 ML IV SCH ×2 (05:44→17:30)
[2021-09-11] MEDS: FUROSEMIDE 20MG TABLET PO SCH ×2 (05:45→17:52)
[2021-09-11] MEDS: ENOXAPARIN 80MG/0.8ML SYR SUBCUT SCH ×2 (05:45→17:47)
[2021-09-11 06:46] LABS: HEMATOCRIT. 26.7 % (42.0-52.0); HEMOGLOBIN. 8.5 g/dL (14.0-18.0); MEAN CORPUSCULAR VOLUME 81.2 fL (80.0-94.0); MEAN PLATELET VOLUME 7.9 fl (7.4-10.4); PLATELET 543 x1000/uL (130-400); RED BLOOD CELL COUNT 3.28 mill/uL (4.7-6.1); RED CELL DISTRIBUTION WIDTH 16.5 % (11.6-14.6)
[2021-09-11 06:51] LABS: CHLORIDE 102 mEq/L (98-107)
[2021-09-11 07:03] LABS: PHOSPHORUS 1.8 mg/dL (2.5-4.9)
[2021-09-11] MEDS ORDERED: MAGNESIUM 2 G PREMIX 50 ML IV NR (09:00)
[2021-09-11] MEDS ORDERED: SODIUM PHOS,M-BASIC-D-BASIC 30 MM in DEXT 5% WATER 500 ML IV NR (09:00)
[2021-09-11] MEDS ORDERED: PAMIDRONATE DISODIUM 90 MG in SODIUM CHLORIDE 0.9% 500 ML IV NR (09:00)
[2021-09-11] MEDS: ZINC SULFATE 220 MG ( 50 ) CAPSULE PO SCH (09:35)
[2021-09-11] MEDS: PREDNISONE 20MG TABLET PO SCH (09:35)
[2021-09-11] MEDS: FAMOTIDINE 20MG TABLET PO SCH ×2 (09:35→20:56)
[2021-09-11] MEDS: ASCORBIC ACID 500 MG TABLET PO SCH ×2 (09:35→20:57)
[2021-09-11] MEDS: POTASSIUM-SODIUM PHOSPHATE POWDER PACKET PO SCH ×2 (09:35→17:46)
[2021-09-11] MEDS: THIAMINE HCL 100MG TABLET PO SCH (09:35)
[2021-09-11 14:02] LABS: NUCLEATED RED BLOOD CELLS 1 /100 WBC; PLATELET ESTIMATE INCREASED
[2021-09-11] MEDS: DIGOXIN 125MCG TABLET PO SCH (17:46)
[2021-09-11] MEDS: DILTIAZEM HCL 30MG TABLET PO SCH (21:46)
[2021-09-11] MEDS ORDERED: DILTIAZEM HCL 30MG TABLET PO SCH (22:00)
[2021-09-12] VITALS (13 sets, daily range): BP systolic 88–118; BP diastolic 51–69
[2021-09-12] MEDS: SODIUM CHLORIDE 0.9% 1,000 ML IV SCH ×3 (00:36→18:41)
[2021-09-12] MEDS: ENOXAPARIN 80MG/0.8ML SYR SUBCUT SCH ×2 (05:12→18:18)
[2021-09-12] MEDS: FUROSEMIDE 20MG TABLET PO SCH ×2 (05:12→17:23)
[2021-09-12] MEDS: DILTIAZEM HCL 30MG TABLET PO SCH ×3 (05:15→21:27)
[2021-09-12] MEDS: POTASSIUM-SODIUM PHOSPHATE POWDER PACKET PO SCH ×2 (08:23→18:18)
[2021-09-12] MEDS: ZINC SULFATE 220 MG ( 50 ) CAPSULE PO SCH (08:24)
[2021-09-12] MEDS: THIAMINE HCL 100MG TABLET PO SCH (08:24)
[2021-09-12] MEDS: ASCORBIC ACID 500 MG TABLET PO SCH ×2 (08:24→20:44)
[2021-09-12] MEDS: FAMOTIDINE 20MG TABLET PO SCH ×2 (08:24→20:44)
[2021-09-12] MEDS: PREDNISONE 20MG TABLET PO SCH (08:24)
[2021-09-12 08:37] LABS: HEMATOCRIT. 26.8 % (42.0-52.0); HEMOGLOBIN. 8.6 g/dL (14.0-18.0); MEAN CORPUSCULAR HEMOGLOBIN 26.3 pg (28.0-32.0); MEAN CORPUSCULAR VOLUME 81.3 fL (80.0-94.0); MEAN PLATELET VOLUME 7.8 fl (7.4-10.4); PLATELET 585 x1000/uL (130-400); RED BLOOD CELL COUNT 3.29 mill/uL (4.7-6.1); RED CELL DISTRIBUTION WIDTH 16.2 % (11.6-14.6)
[2021-09-12 09:14] LABS: CHLORIDE 102 mEq/L (98-107)
[2021-09-12 09:24] LABS: PHOSPHORUS 2.5 mg/dL (2.5-4.9)
[2021-09-12 13:48] LABS: NUCLEATED RED BLOOD CELLS 1 /100 WBC
[2021-09-12 13:49] LABS: PLATELET ESTIMATE INCREASED
[2021-09-12] MEDS: DIGOXIN 125MCG TABLET PO SCH (18:17)
[2021-09-13] VITALS (14 sets, daily range): BP systolic 89–123; BP diastolic 51–73
[2021-09-13] MEDS: ENOXAPARIN 80MG/0.8ML SYR SUBCUT SCH ×2 (05:08→17:07)
[2021-09-13] MEDS: DILTIAZEM HCL 30MG TABLET PO SCH ×3 (05:08→21:48)
[2021-09-13] MEDS: FUROSEMIDE 20MG TABLET PO SCH ×2 (05:09→17:06)
[2021-09-13] MEDS: POTASSIUM-SODIUM PHOSPHATE POWDER PACKET PO SCH ×2 (08:43→17:05)
[2021-09-13] MEDS: ZINC SULFATE 220 MG ( 50 ) CAPSULE PO SCH (08:44)
[2021-09-13] MEDS: ASCORBIC ACID 500 MG TABLET PO SCH ×2 (08:44→21:48)
[2021-09-13] MEDS: THIAMINE HCL 100MG TABLET PO SCH (08:44)
[2021-09-13] MEDS: FAMOTIDINE 20MG TABLET PO SCH ×2 (08:44→21:48)
[2021-09-13] MEDS: DOCUSATE SODIUM 100MG CAPSULE PO PRN (08:44)
[2021-09-13] MEDS: PREDNISONE 20MG TABLET PO SCH (08:44)
[2021-09-13] MEDS: ACETAMINOPHEN 325MG TABLET PO PRN (08:45)
[2021-09-13] MEDS: DILTIAZEM HCL 5MG/ML 5ML VIAL IV PRN (08:46)
[2021-09-13 10:15] LABS: HEMATOCRIT. 28.9 % (42.0-52.0); MEAN CORPUSCULAR VOLUME 80.3 fL (80.0-94.0); MEAN PLATELET VOLUME 7.7 fl (7.4-10.4); PLATELET 626 x1000/uL (130-400); RED CELL DISTRIBUTION WIDTH 16.4 % (11.6-14.6)
[2021-09-13 10:18] LABS: CHLORIDE 104 mEq/L (98-107)
[2021-09-13 10:29] LABS: PHOSPHORUS 1.8 mg/dL (2.5-4.9)
[2021-09-13] MEDS: SODIUM CHLORIDE 0.9% 1,000 ML IV SCH ×2 (14:30→15:36)
[2021-09-13 14:59] LABS: PLATELET ESTIMATE INCREASED
[2021-09-13] MEDS: DIGOXIN 125MCG TABLET PO SCH (17:06)
[2021-09-14] VITALS (11 sets, daily range): BP systolic 91–116; BP diastolic 53–69
[2021-09-14] MEDS: FUROSEMIDE 20MG TABLET PO SCH ×2 (06:20→18:37)
[2021-09-14] MEDS: DILTIAZEM HCL 30MG TABLET PO SCH ×2 (06:25→13:18)
[2021-09-14] MEDS: ENOXAPARIN 80MG/0.8ML SYR SUBCUT SCH ×2 (06:25→18:38)
[2021-09-14] MEDS: THIAMINE HCL 100MG TABLET PO SCH (08:41)
[2021-09-14] MEDS: FAMOTIDINE 20MG TABLET PO SCH ×2 (08:41→20:59)
[2021-09-14] MEDS: ZINC SULFATE 220 MG ( 50 ) CAPSULE PO SCH (08:41)
[2021-09-14] MEDS: POTASSIUM-SODIUM PHOSPHATE POWDER PACKET PO SCH ×2 (08:41→18:02)
[2021-09-14] MEDS: ASCORBIC ACID 500 MG TABLET PO SCH ×2 (08:41→20:59)
[2021-09-14] MEDS: PREDNISONE 20MG TABLET PO SCH (08:41)
[2021-09-14 08:54] LABS: HEMATOCRIT. 26.3 % (42.0-52.0); HEMOGLOBIN. 8.4 g/dL (14.0-18.0); MEAN CORPUSCULAR HEMOGLOBIN 25.8 pg (28.0-32.0); MEAN CORPUSCULAR VOLUME 80.7 fL (80.0-94.0); MEAN PLATELET VOLUME 7.9 fl (7.4-10.4); PLATELET 567 x1000/uL (130-400); RED BLOOD CELL COUNT 3.25 mill/uL (4.7-6.1); RED CELL DISTRIBUTION WIDTH 16.1 % (11.6-14.6)
[2021-09-14 09:02] LABS: CHLORIDE 105 mEq/L (98-107)
[2021-09-14 09:10] LABS: PHOSPHORUS 1.7 mg/dL (2.5-4.9)
[2021-09-14 16:09] LABS: PLATELET ESTIMATE INCREASED
[2021-09-14] MEDS: DILTIAZEM HCL 60MG TABLET PO SCH (18:37)
[2021-09-14] MEDS: DIGOXIN 125MCG TABLET PO SCH (18:37)
[2021-09-14] MEDS: ACETAMINOPHEN 325MG TABLET PO PRN (22:39)
[2021-09-15] VITALS (12 sets, daily range): BP systolic 93–123; BP diastolic 58–72
[2021-09-15] MEDS: ENOXAPARIN 80MG/0.8ML SYR SUBCUT SCH ×2 (06:36→17:43)
[2021-09-15] MEDS: DILTIAZEM HCL 60MG TABLET PO SCH ×4 (06:36→17:51)
[2021-09-15] MEDS: FUROSEMIDE 20MG TABLET PO SCH ×2 (06:36→17:43)
[2021-09-15 09:31] LABS: CHLORIDE 104 mEq/L (98-107)
[2021-09-15 09:40] LABS: PHOSPHORUS 1.7 mg/dL (2.5-4.9)
[2021-09-15] MEDS: ASCORBIC ACID 500 MG TABLET PO SCH ×2 (09:46→21:25)
[2021-09-15] MEDS: POTASSIUM-SODIUM PHOSPHATE POWDER PACKET PO SCH ×2 (09:46→17:43)
[2021-09-15] MEDS: THIAMINE HCL 100MG TABLET PO SCH (09:46)
[2021-09-15] MEDS: FAMOTIDINE 20MG TABLET PO SCH ×2 (09:46→21:25)
[2021-09-15] MEDS: ZINC SULFATE 220 MG ( 50 ) CAPSULE PO SCH (09:47)
[2021-09-15] MEDS: PREDNISONE 20MG TABLET PO SCH (09:47)
[2021-09-15 15:51] LABS: HEMATOCRIT. 27.1 % (42.0-52.0); HEMOGLOBIN. 8.3 g/dL (14.0-18.0); MEAN CORPUSCULAR HEMOGLOBIN 24.8 pg (28.0-32.0); MEAN CORPUSCULAR VOLUME 80.6 fL (80.0-94.0); MEAN PLATELET VOLUME 7.6 fl (7.4-10.4); PLATELET 578 x1000/uL (130-400); RED BLOOD CELL COUNT 3.36 mill/uL (4.7-6.1)
[2021-09-15] MEDS: SODIUM CHLORIDE 0.9% 1,000 ML IV SCH (17:21)
[2021-09-15] MEDS: DIGOXIN 125MCG TABLET PO SCH (17:43)
[2021-09-15 18:56] LABS: PLATELET ESTIMATE INCREASED
[2021-09-16] VITALS (10 sets, daily range): BP systolic 95–128; BP diastolic 49–76
[2021-09-16] MEDS: DILTIAZEM HCL 60MG TABLET PO SCH ×5 (00:06→23:39)
[2021-09-16] MEDS: ENOXAPARIN 80MG/0.8ML SYR SUBCUT SCH ×2 (05:46→17:55)
[2021-09-16] MEDS: FUROSEMIDE 20MG TABLET PO SCH ×2 (05:47→17:55)
[2021-09-16] MEDS: SODIUM CHLORIDE 0.9% 1,000 ML IV SCH ×2 (05:48→17:58)
[2021-09-16 07:25] LABS: HEMATOCRIT. 28.8 % (42.0-52.0); MEAN CORPUSCULAR HEMOGLOBIN 25.2 pg (28.0-32.0); MEAN CORPUSCULAR VOLUME 81.3 fL (80.0-94.0); MEAN PLATELET VOLUME 7.7 fl (7.4-10.4); PLATELET 588 x1000/uL (130-400); RED BLOOD CELL COUNT 3.55 mill/uL (4.7-6.1); RED CELL DISTRIBUTION WIDTH 16.4 % (11.6-14.6)
[2021-09-16 08:07] LABS: CHLORIDE 101 mEq/L (98-107)
[2021-09-16 08:16] LABS: PHOSPHORUS 2.4 mg/dL (2.5-4.9)
[2021-09-16] MEDS: POTASSIUM-SODIUM PHOSPHATE POWDER PACKET PO SCH ×2 (09:22→17:55)
[2021-09-16] MEDS: THIAMINE HCL 100MG TABLET PO SCH (09:23)
[2021-09-16] MEDS: ZINC SULFATE 220 MG ( 50 ) CAPSULE PO SCH (09:23)
[2021-09-16] MEDS: PREDNISONE 20MG TABLET PO SCH (09:23)
[2021-09-16] MEDS: ASCORBIC ACID 500 MG TABLET PO SCH ×2 (09:23→21:51)
[2021-09-16] MEDS: FAMOTIDINE 20MG TABLET PO SCH ×2 (09:23→21:51)
[2021-09-16] MEDS: DILTIAZEM HCL 5MG/ML 5ML VIAL IV PRN (12:46)
[2021-09-16] MEDS: DIGOXIN 125MCG TABLET PO SCH (17:55)
[2021-09-16 20:53] LABS: PLATELET ESTIMATE INCREASED
[2021-09-17] VITALS (12 sets, daily range): BP systolic 92–137; BP diastolic 51–70
[2021-09-17] MEDS: DILTIAZEM HCL 60MG TABLET PO SCH ×3 (04:38→17:30)
[2021-09-17] MEDS: DILTIAZEM HCL 5MG/ML 5ML VIAL IV PRN (04:44)
[2021-09-17] MEDS: FUROSEMIDE 20MG TABLET PO SCH ×2 (05:08→17:29)
[2021-09-17] MEDS: ENOXAPARIN 80MG/0.8ML SYR SUBCUT SCH ×2 (05:09→17:30)
[2021-09-17] MEDS: ZINC SULFATE 220 MG ( 50 ) CAPSULE PO SCH (08:41)
[2021-09-17] MEDS: PREDNISONE 20MG TABLET PO SCH (08:41)
[2021-09-17] MEDS: FAMOTIDINE 20MG TABLET PO SCH ×2 (08:41→20:23)
[2021-09-17] MEDS: ASCORBIC ACID 500 MG TABLET PO SCH ×2 (08:41→20:22)
[2021-09-17] MEDS: THIAMINE HCL 100MG TABLET PO SCH (08:41)
[2021-09-17] MEDS: POTASSIUM-SODIUM PHOSPHATE POWDER PACKET PO SCH ×2 (08:41→17:29)
[2021-09-17] MEDS: SODIUM CHLORIDE 0.9% 1,000 ML IV SCH ×2 (08:42→22:22)
[2021-09-17 09:27] LABS: HEMATOCRIT. 27.7 % (42.0-52.0); HEMOGLOBIN. 8.6 g/dL (14.0-18.0); MEAN CORPUSCULAR HEMOGLOBIN 25.1 pg (28.0-32.0); MEAN CORPUSCULAR VOLUME 80.3 fL (80.0-94.0); MEAN PLATELET VOLUME 7.3 fl (7.4-10.4); PLATELET 596 x1000/uL (130-400); RED BLOOD CELL COUNT 3.45 mill/uL (4.7-6.1); RED CELL DISTRIBUTION WIDTH 16.7 % (11.6-14.6)
[2021-09-17 09:32] LABS: CHLORIDE 101 mEq/L (98-107)
[2021-09-17 09:41] LABS: PHOSPHORUS 2.4 mg/dL (2.5-4.9)
[2021-09-17] MEDS: DIGOXIN 125MCG TABLET PO SCH (17:29)
[2021-09-17 17:37] LABS: PLATELET ESTIMATE INCREASED
[2021-09-18] VITALS (12 sets, daily range): BP systolic 96–134; BP diastolic 61–79
[2021-09-18] MEDS: DILTIAZEM HCL 60MG TABLET PO SCH ×4 (00:14→17:08)
[2021-09-18] MEDS: ENOXAPARIN 80MG/0.8ML SYR SUBCUT SCH ×2 (05:29→17:08)
[2021-09-18] MEDS: FUROSEMIDE 20MG TABLET PO SCH ×2 (05:29→17:08)
[2021-09-18] MEDS: ASCORBIC ACID 500 MG TABLET PO SCH ×2 (08:19→20:44)
[2021-09-18] MEDS: ZINC SULFATE 220 MG ( 50 ) CAPSULE PO SCH (08:19)
[2021-09-18] MEDS: POTASSIUM-SODIUM PHOSPHATE POWDER PACKET PO SCH ×2 (08:19→17:08)
[2021-09-18] MEDS: THIAMINE HCL 100MG TABLET PO SCH (08:19)
[2021-09-18] MEDS: PREDNISONE 20MG TABLET PO SCH (08:19)
[2021-09-18] MEDS: FAMOTIDINE 20MG TABLET PO SCH ×2 (08:19→20:44)
[2021-09-18] MEDS: SODIUM CHLORIDE 0.9% 1,000 ML IV SCH (10:34)
[2021-09-18] MEDS ORDERED: PAMIDRONATE DISODIUM 90 MG in SODIUM CHLORIDE 0.9% 1,000 ML IV ONE (11:30)
[2021-09-18] MEDS: DIGOXIN 125MCG TABLET PO SCH (17:08)
[2021-09-19] VITALS (11 sets, daily range): BP systolic 97–130; BP diastolic 57–74
[2021-09-19] MEDS: DILTIAZEM HCL 60MG TABLET PO SCH ×5 (00:01→23:18)
[2021-09-19] MEDS: SODIUM CHLORIDE 0.9% 1,000 ML IV SCH ×2 (01:55→14:34)
[2021-09-19] MEDS: ENOXAPARIN 80MG/0.8ML SYR SUBCUT SCH ×2 (06:00→17:10)
[2021-09-19] MEDS: FUROSEMIDE 20MG TABLET PO SCH ×2 (06:00→17:09)
[2021-09-19 07:17] LABS: HEMATOCRIT. 26.2 % (42.0-52.0); HEMOGLOBIN. 8.4 g/dL (14.0-18.0); MEAN CORPUSCULAR HEMOGLOBIN 25.6 pg (28.0-32.0); MEAN PLATELET VOLUME 7.9 fl (7.4-10.4); PLATELET 595 x1000/uL (130-400); RED BLOOD CELL COUNT 3.28 mill/uL (4.7-6.1); RED CELL DISTRIBUTION WIDTH 16.7 % (11.6-14.6)
[2021-09-19 07:27] LABS: CHLORIDE 104 mEq/L (98-107)
[2021-09-19 07:42] LABS: PHOSPHORUS 1.9 mg/dL (2.5-4.9)
[2021-09-19 07:59] LABS: DIGOXIN 0.6 ng/mL (0.9-2.0)
[2021-09-19] MEDS: ZINC SULFATE 220 MG ( 50 ) CAPSULE PO SCH (08:13)
[2021-09-19] MEDS: THIAMINE HCL 100MG TABLET PO SCH (08:13)
[2021-09-19] MEDS: FAMOTIDINE 20MG TABLET PO SCH ×2 (08:13→20:40)
[2021-09-19] MEDS: PREDNISONE 20MG TABLET PO SCH (08:13)
[2021-09-19] MEDS: ASCORBIC ACID 500 MG TABLET PO SCH ×2 (08:13→20:40)
[2021-09-19] MEDS: POTASSIUM-SODIUM PHOSPHATE POWDER PACKET PO SCH ×2 (08:13→17:09)
[2021-09-19 12:27] LABS: PLATELET ESTIMATE INCREASED
[2021-09-19] MEDS: DIGOXIN 125MCG TABLET PO SCH (17:09)
[2021-09-20] VITALS (7 sets, daily range): BP systolic 89–114; BP diastolic 48–75
[2021-09-20] MEDS: SODIUM CHLORIDE 0.9% 1,000 ML IV SCH ×3 (03:43→17:24)
[2021-09-20] MEDS: ENOXAPARIN 80MG/0.8ML SYR SUBCUT SCH ×2 (05:56→17:25)
[2021-09-20] MEDS: FUROSEMIDE 20MG TABLET PO SCH ×2 (05:56→17:25)
[2021-09-20] MEDS: DILTIAZEM HCL 60MG TABLET PO SCH ×3 (05:57→17:25)
[2021-09-20] MEDS: ZINC SULFATE 220 MG ( 50 ) CAPSULE PO SCH (08:34)
[2021-09-20] MEDS: POTASSIUM-SODIUM PHOSPHATE POWDER PACKET PO SCH ×2 (08:34→17:24)
[2021-09-20] MEDS: ASCORBIC ACID 500 MG TABLET PO SCH ×2 (08:34→21:08)
[2021-09-20] MEDS: THIAMINE HCL 100MG TABLET PO SCH (08:34)
[2021-09-20] MEDS: PREDNISONE 20MG TABLET PO SCH (08:36)
[2021-09-20 08:37] LABS: HEMATOCRIT. 29.1 % (42.0-52.0); HEMOGLOBIN. 9.2 g/dL (14.0-18.0); MEAN CORPUSCULAR HEMOGLOBIN 25.4 pg (28.0-32.0); MEAN CORPUSCULAR VOLUME 80.4 fL (80.0-94.0); MEAN PLATELET VOLUME 8.2 fl (7.4-10.4); PLATELET 552 x1000/uL (130-400); RED BLOOD CELL COUNT 3.61 mill/uL (4.7-6.1); RED CELL DISTRIBUTION WIDTH 16.6 % (11.6-14.6)
[2021-09-20] MEDS: FAMOTIDINE 20MG TABLET PO SCH ×2 (08:39→21:08)
[2021-09-20 09:19] LABS: CHLORIDE 104 mEq/L (98-107)
[2021-09-20 09:27] LABS: PHOSPHORUS 1.5 mg/dL (2.5-4.9)
[2021-09-20] MEDS ORDERED: DIGOXIN 500MCG/2ML AMP IV SCH (11:00)
[2021-09-20] MEDS ORDERED: SODIUM PHOS,M-BASIC-D-BASIC 30 MM in DEXT 5% WATER 500 ML IV NR (12:00)
[2021-09-20 13:10] LABS: PLATELET ESTIMATE INCREASED
[2021-09-20] MEDS: DIGOXIN 125MCG TABLET PO SCH (17:25)
[2021-09-21] VITALS (7 sets, daily range): BP systolic 103–151; BP diastolic 63–73
[2021-09-21] MEDS: DILTIAZEM HCL 60MG TABLET PO SCH ×5 (00:05→23:26)
[2021-09-21] MEDS: DILTIAZEM HCL 5MG/ML 5ML VIAL IV PRN (03:00)
[2021-09-21] MEDS: DIGOXIN 500MCG/2ML AMP IV PRN ×3 (04:09→17:50)
[2021-09-21] MEDS: SODIUM CHLORIDE 0.9% 1,000 ML IV SCH ×3 (05:50→23:27)
[2021-09-21] MEDS: FUROSEMIDE 20MG TABLET PO SCH ×2 (05:50→17:49)
[2021-09-21] MEDS: ENOXAPARIN 80MG/0.8ML SYR SUBCUT SCH ×2 (05:54→17:49)
[2021-09-21 07:11] LABS: CHLORIDE 104 mEq/L (98-107)
[2021-09-21 07:15] LABS: HEMOGLOBIN. 8.6 g/dL (14.0-18.0); MEAN CORPUSCULAR HEMOGLOBIN 25.6 pg (28.0-32.0); MEAN CORPUSCULAR VOLUME 80.2 fL (80.0-94.0); MEAN PLATELET VOLUME 8.2 fl (7.4-10.4); PLATELET 556 x1000/uL (130-400); RED BLOOD CELL COUNT 3.37 mill/uL (4.7-6.1); RED CELL DISTRIBUTION WIDTH 16.9 % (11.6-14.6)
[2021-09-21 07:16] LABS: PHOSPHORUS 1.9 mg/dL (2.5-4.9)
[2021-09-21] MEDS: POTASSIUM-SODIUM PHOSPHATE POWDER PACKET PO SCH ×2 (08:42→17:48)
[2021-09-21] MEDS: PREDNISONE 20MG TABLET PO SCH (08:42)
[2021-09-21] MEDS: THIAMINE HCL 100MG TABLET PO SCH (08:42)
[2021-09-21] MEDS: ZINC SULFATE 220 MG ( 50 ) CAPSULE PO SCH (08:42)
[2021-09-21] MEDS: FAMOTIDINE 20MG TABLET PO SCH ×2 (08:43→20:32)
[2021-09-21] MEDS: ASCORBIC ACID 500 MG TABLET PO SCH ×2 (08:43→20:32)
[2021-09-21 13:01] LABS: PLATELET ESTIMATE INCREASED
[2021-09-21] MEDS: DIGOXIN 125MCG TABLET PO SCH (18:02)
[2021-09-22] VITALS (7 sets, daily range): BP systolic 96–142; BP diastolic 62–81
[2021-09-22] MEDS: ENOXAPARIN 80MG/0.8ML SYR SUBCUT SCH ×2 (05:18→18:54)
[2021-09-22] MEDS: DILTIAZEM HCL 60MG TABLET PO SCH ×4 (05:18→23:57)
[2021-09-22] MEDS: FUROSEMIDE 20MG TABLET PO SCH ×2 (05:18→18:54)
[2021-09-22] MEDS: FAMOTIDINE 20MG TABLET PO SCH ×2 (10:17→20:52)
[2021-09-22] MEDS: PREDNISONE 20MG TABLET PO SCH (10:17)
[2021-09-22] MEDS: POTASSIUM-SODIUM PHOSPHATE POWDER PACKET PO SCH ×2 (10:17→18:54)
[2021-09-22] MEDS: ASCORBIC ACID 500 MG TABLET PO SCH ×2 (10:17→20:52)
[2021-09-22] MEDS: ZINC SULFATE 220 MG ( 50 ) CAPSULE PO SCH (10:17)
[2021-09-22] MEDS: THIAMINE HCL 100MG TABLET PO SCH (10:18)
[2021-09-22 17:14] LABS: HEMATOCRIT. 26.8 % (42.0-52.0); HEMOGLOBIN. 8.2 g/dL (14.0-18.0); MEAN CORPUSCULAR HEMOGLOBIN 25.2 pg (28.0-32.0); MEAN CORPUSCULAR VOLUME 81.8 fL (80.0-94.0); MEAN PLATELET VOLUME 7.6 fl (7.4-10.4); PLATELET 509 x1000/uL (130-400); RED BLOOD CELL COUNT 3.27 mill/uL (4.7-6.1); RED CELL DISTRIBUTION WIDTH 17.3 % (11.6-14.6)
[2021-09-22 17:19] LABS: CHLORIDE 106 mEq/L (98-107)
[2021-09-22] MEDS: DIGOXIN 125MCG TABLET PO SCH (18:55)
[2021-09-22] MEDS: SODIUM CHLORIDE 0.9% 1,000 ML IV SCH (19:46)
[2021-09-22 20:34] LABS: PLATELET ESTIMATE INCREASED
[2021-09-23 04:00] VITALS: BP 117/78
[2021-09-23] MEDS: DILTIAZEM HCL 60MG TABLET PO SCH ×4 (06:10→23:43)
[2021-09-23] MEDS: FUROSEMIDE 20MG TABLET PO SCH (06:10)
[2021-09-23] MEDS: ENOXAPARIN 80MG/0.8ML SYR SUBCUT SCH ×2 (06:11→17:18)
[2021-09-23] MEDS: SODIUM CHLORIDE 0.9% 1,000 ML IV SCH ×2 (06:11→17:18)
[2021-09-23 06:21] LABS: HEMOGLOBIN. 7.7 g/dL (14.0-18.0); MEAN CORPUSCULAR HEMOGLOBIN 24.6 pg (28.0-32.0); MEAN CORPUSCULAR VOLUME 80.4 fL (80.0-94.0); MEAN PLATELET VOLUME 8.3 fl (7.4-10.4); PLATELET 529 x1000/uL (130-400); RED BLOOD CELL COUNT 3.11 mill/uL (4.7-6.1); RED CELL DISTRIBUTION WIDTH 17.2 % (11.6-14.6)
[2021-09-23 07:14] LABS: CHLORIDE 108 mEq/L (98-107)
[2021-09-23 07:22] LABS: PHOSPHORUS 2.4 mg/dL (2.5-4.9)
[2021-09-23 08:00] VITALS: BP 114/67
[2021-09-23] MEDS: POTASSIUM-SODIUM PHOSPHATE POWDER PACKET PO SCH ×2 (08:38→17:18)
[2021-09-23] MEDS: ZINC SULFATE 220 MG ( 50 ) CAPSULE PO SCH (08:38)
[2021-09-23] MEDS: PREDNISONE 20MG TABLET PO SCH (08:38)
[2021-09-23] MEDS: THIAMINE HCL 100MG TABLET PO SCH (08:38)
[2021-09-23 12:07] LABS: PLATELET ESTIMATE INCREASED
[2021-09-23] MEDS ORDERED: MEGESTROL ACETATE 400 MG/10 ML UDC PO SCH (12:15)
[2021-09-23] MEDS: POLYETHYLENE GLYCOL 3350 (17GM) 1 DOSE PACK PEG SCH (12:15)
[2021-09-23 12:23] VITALS: BP 109/76
[2021-09-23] MEDS: DOCUSATE SODIUM SUGAR FREE 100MG/10ML UDC PEG SCH (13:54)
[2021-09-23 16:00] VITALS: BP 113/70
[2021-09-23] MEDS: DIGOXIN 125MCG TABLET PO SCH (17:18)
[2021-09-23] MEDS: FUROSEMIDE 40MG TABLET PO SCH (17:18)
[2021-09-23 20:00] VITALS: BP 106/71
[2021-09-23] MEDS: SENNOSIDES/DOCUSATE SOD 8.6/50MG TABLET PEG SCH (21:16)
[2021-09-24] VITALS: BP 135/71
[2021-09-24] MEDS: IPRATROPIUM/ALBUTEROL 0.5-3(2.5)MG/3ML NEB HHN PRN ×2 (02:01→12:22)
[2021-09-24] MEDS: SODIUM CHLORIDE 0.9% 1,000 ML IV SCH (02:47)
[2021-09-24 04:00] VITALS: BP 128/68
[2021-09-24] MEDS: DILTIAZEM HCL 60MG TABLET PO SCH ×4 (05:31→23:05)
[2021-09-24] MEDS: ENOXAPARIN 80MG/0.8ML SYR SUBCUT SCH ×2 (05:32→17:00)
[2021-09-24] MEDS: FUROSEMIDE 40MG TABLET PO SCH ×2 (05:32→17:00)
[2021-09-24 07:06] LABS: HEMATOCRIT. 23.9 % (42.0-52.0); HEMOGLOBIN. 7.5 g/dL (14.0-18.0); MEAN CORPUSCULAR HEMOGLOBIN 25.3 pg (28.0-32.0); MEAN CORPUSCULAR VOLUME 80.6 fL (80.0-94.0); MEAN PLATELET VOLUME 8.6 fl (7.4-10.4); PLATELET 498 x1000/uL (130-400); RED BLOOD CELL COUNT 2.97 mill/uL (4.7-6.1); RED CELL DISTRIBUTION WIDTH 17.4 % (11.6-14.6)
[2021-09-24 07:25] LABS: CHLORIDE 111 mEq/L (98-107)
[2021-09-24 07:37] LABS: PHOSPHORUS 2.3 mg/dL (2.5-4.9)
[2021-09-24 08:00] VITALS: BP 123/70
[2021-09-24] MEDS: PREDNISONE 20MG TABLET PO SCH (08:09)
[2021-09-24] MEDS: POLYETHYLENE GLYCOL 3350 (17GM) 1 DOSE PACK PEG SCH (08:09)
[2021-09-24] MEDS: THIAMINE HCL 100MG TABLET PO SCH (08:09)
[2021-09-24] MEDS: POTASSIUM-SODIUM PHOSPHATE POWDER PACKET PO SCH ×2 (08:09→16:59)
[2021-09-24] MEDS: DOCUSATE SODIUM SUGAR FREE 100MG/10ML UDC PEG SCH (08:09)
[2021-09-24] MEDS: SODIUM CHLORIDE 0.45% 1,000 ML IV SCH ×3 (08:09→22:55)
[2021-09-24] MEDS ORDERED: NALOXONE HCL 0.4MG/ML VIAL IV PRN (11:15)
[2021-09-24 12:00] VITALS: BP 131/78
[2021-09-24 14:59] LABS: PLATELET ESTIMATE INCREASED
[2021-09-24 16:00] VITALS: BP 121/68
[2021-09-24] MEDS: DIGOXIN 125MCG TABLET PO SCH (17:00)
[2021-09-24 20:00] VITALS: BP 131/92
[2021-09-24] MEDS: GUAIFENESIN-DM 200MG-20MG/10ML UDC PO PRN (20:07)
[2021-09-24] MEDS: SENNOSIDES/DOCUSATE SOD 8.6/50MG TABLET PEG SCH (20:07)
[2021-09-25] VITALS (14 sets, daily range): BP systolic 83–126; BP diastolic 52–75
[2021-09-25] MEDS: DILTIAZEM HCL 60MG TABLET PO SCH ×3 (05:32→17:29)
[2021-09-25] MEDS: ENOXAPARIN 80MG/0.8ML SYR SUBCUT SCH ×2 (05:32→17:29)
[2021-09-25] MEDS: FUROSEMIDE 40MG TABLET PO SCH ×2 (05:32→17:35)
[2021-09-25] MEDS: SODIUM CHLORIDE 0.45% 1,000 ML IV SCH ×4 (05:33→23:13)
[2021-09-25] MEDS ORDERED: PAMIDRONATE DISODIUM 90 MG in SODIUM CHLORIDE 0.9% 1,000 ML IV SCH (06:00)
[2021-09-25 07:57] LABS: HEMATOCRIT. 24.4 % (42.0-52.0); HEMOGLOBIN. 7.8 g/dL (14.0-18.0); MEAN CORPUSCULAR HEMOGLOBIN 25.8 pg (28.0-32.0); MEAN CORPUSCULAR VOLUME 81.2 fL (80.0-94.0); MEAN PLATELET VOLUME 8.5 fl (7.4-10.4); PLATELET 482 x1000/uL (130-400); RED BLOOD CELL COUNT 3.01 mill/uL (4.7-6.1); RED CELL DISTRIBUTION WIDTH 17.2 % (11.6-14.6)
[2021-09-25 07:59] LABS: CHLORIDE 107 mEq/L (98-107)
[2021-09-25] MEDS ORDERED: SUCCINYLCHOLINE CHLORIDE 200MG/10ML IV ONE (08:00)
[2021-09-25 08:07] LABS: PHOSPHORUS 2.9 mg/dL (2.5-4.9)
[2021-09-25] MEDS: POTASSIUM-SODIUM PHOSPHATE POWDER PACKET PO SCH ×2 (08:52→16:27)
[2021-09-25] MEDS: DOCUSATE SODIUM SUGAR FREE 100MG/10ML UDC PEG SCH (08:52)
[2021-09-25] MEDS: TRAMADOL 50MG TABLET PO PRN (08:53)
[2021-09-25] MEDS: THIAMINE HCL 100MG TABLET PO SCH (08:54)
[2021-09-25] MEDS: POLYETHYLENE GLYCOL 3350 (17GM) 1 DOSE PACK PEG SCH (08:54)
[2021-09-25] MEDS: PREDNISONE 20MG TABLET PO SCH (08:59)
[2021-09-25 10:17] LABS: BG BASE EXCESS 2.2 mmol/L (-2.0-2.0); BG CARBOXYHEMOGLOBIN 0.3 % (0.5-1.5); BG DEOXYHEMOGLOBIN 7.3 % (0.0-5.0); BG FRACTION INSPIRED OXYGEN 99.8; BG HCO3 ACT 30.1 mmol/L (22.0-26.0); BG METHEMOGLOBIN 0.3 % (0.0-1.5); BG OXYGEN SATURATION 92.7 % (92.0-98.5); BG OXYHEMOGLOBIN 92.1 % (94.0-97.0); BG PH 7.258 (7.350-7.450); BG PO2 75.9 mmHg (75.0-100.0); BG SAMPLE SITE LEFT BRACHIAL; BG TOTAL HEMOGLOBIN 8.4 g/dL (12.0-18.0); BG VENT MODE MASK - NRB
[2021-09-25 10:36] LABS: PLATELET ESTIMATE SLIGHTLY INCREASED
[2021-09-25] MEDS: DILTIAZEM HCL 5MG/ML 5ML VIAL IV PRN ×2 (12:27→12:29)
[2021-09-25] MEDS: DIGOXIN 125MCG TABLET PO SCH (17:35)
[2021-09-25 20:46] LABS: BG BASE EXCESS 2.2 mmol/L (-2.0-2.0); BG CARBOXYHEMOGLOBIN 0.3 % (0.5-1.5); BG DEOXYHEMOGLOBIN 7.7 % (0.0-5.0); BG FRACTION INSPIRED OXYGEN 100; BG HCO3 ACT 31.5 mmol/L (22.0-26.0); BG METHEMOGLOBIN 0.4 % (0.0-1.5); BG OXYGEN SATURATION 92.2 % (92.0-98.5); BG OXYHEMOGLOBIN 91.6 % (94.0-97.0); BG PCO2 81.1 mmHg (35.0-45.0); BG PH 7.207 (7.350-7.450); BG PO2 70.9 mmHg (75.0-100.0); BG SAMPLE SITE RIGHT RADIAL; BG TOTAL HEMOGLOBIN 9.5 g/dL (12.0-18.0); BG VENT MODE MASK - BIPAP
[2021-09-25] MEDS ORDERED: NOREPINEPHRINE 32 MG in DEXT 5% WATER 218 ML IV PRN (22:15)
[2021-09-25] MEDS ORDERED: PROPOFOL 10MG/ML 100ML 100 ML IV PRN (22:15)
[2021-09-25] MEDS: PHENYLEPHRINE 100 MG in DEXT 5% WATER 240 ML IV PRN (23:08)
[2021-09-25] MEDS: FENTANYL CITRATE/PF 2,500 MCG in SODIUM CHLORIDE 0.9% 200 ML IV PRN (23:12)
[2021-09-26] VITALS (95 sets, daily range): BP systolic 72–155; BP diastolic 48–88
[2021-09-26 00:04] LABS: BG BASE EXCESS -1.3 mmol/L (-2.0-2.0); BG CARBOXYHEMOGLOBIN 0.3 % (0.5-1.5); BG DEOXYHEMOGLOBIN 6.3 % (0.0-5.0); BG FRACTION INSPIRED OXYGEN 100; BG HCO3 ACT 27.9 mmol/L (22.0-26.0); BG METHEMOGLOBIN 0.4 % (0.0-1.5); BG OXYGEN SATURATION 93.7 % (92.0-98.5); BG PH 7.171 (7.350-7.450); BG PO2 78.2 mmHg (75.0-100.0); BG SAMPLE SITE RIGHT RADIAL; BG TOTAL HEMOGLOBIN 8.7 g/dL (12.0-18.0); BG TOTAL RESPIRATORY RATE 18 b/min; BG VENT MODE VENT - AC
[2021-09-26 05:37] LABS: CHLORIDE 106 mEq/L (98-107)
[2021-09-26 05:39] LABS: HEMATOCRIT. 27.9 % (42.0-52.0); HEMOGLOBIN. 8.3 g/dL (14.0-18.0); MEAN CORPUSCULAR HEMOGLOBIN 24.8 pg (28.0-32.0); MEAN CORPUSCULAR VOLUME 83.6 fL (80.0-94.0); MEAN PLATELET VOLUME 8.5 fl (7.4-10.4); PLATELET 553 x1000/uL (130-400); RED BLOOD CELL COUNT 3.34 mill/uL (4.7-6.1); RED CELL DISTRIBUTION WIDTH 17.5 % (11.6-14.6)
[2021-09-26] MEDS: DILTIAZEM HCL 60MG TABLET PO SCH ×4 (06:00→18:49)
[2021-09-26] MEDS: ENOXAPARIN 80MG/0.8ML SYR SUBCUT SCH ×2 (06:00→18:50)
[2021-09-26] MEDS ORDERED: SODIUM CHLORIDE 0.9% 500 ML IV ONE (06:00)
[2021-09-26] MEDS: SODIUM CHLORIDE 0.45% 1,000 ML IV SCH ×3 (06:25→22:22)
[2021-09-26] MEDS: FUROSEMIDE 40MG TABLET PO SCH ×2 (06:25→18:49)
[2021-09-26 08:39] LABS: NUCLEATED RED BLOOD CELLS 1 /100 WBC; PLATELET ESTIMATE INCREASED
[2021-09-26] MEDS: POTASSIUM-SODIUM PHOSPHATE POWDER PACKET PO SCH (08:41)
[2021-09-26] MEDS: POLYETHYLENE GLYCOL 3350 (17GM) 1 DOSE PACK PEG SCH (08:41)
[2021-09-26] MEDS: DOCUSATE SODIUM SUGAR FREE 100MG/10ML UDC PEG SCH (08:41)
[2021-09-26] MEDS: PREDNISONE 20MG TABLET PO SCH (08:42)
[2021-09-26] MEDS: SENNOSIDES/DOCUSATE SOD 8.6/50MG TABLET PEG SCH ×2 (08:42→22:21)
[2021-09-26] MEDS: THIAMINE HCL 100MG TABLET PO SCH (08:42)
[2021-09-26] MEDS: PHENYLEPHRINE 100 MG in DEXT 5% WATER 240 ML IV PRN ×2 (08:43→18:50)
[2021-09-26 08:55] LABS: BG BASE EXCESS -0.5 mmol/L (-2.0-2.0); BG CARBOXYHEMOGLOBIN 0.3 % (0.5-1.5); BG DEOXYHEMOGLOBIN 16.1 % (0.0-5.0); BG FRACTION INSPIRED OXYGEN 100; BG HCO3 ACT 27.4 mmol/L (22.0-26.0); BG METHEMOGLOBIN 0.3 % (0.0-1.5); BG OXYGEN SATURATION 83.8 % (92.0-98.5); BG OXYHEMOGLOBIN 83.3 % (94.0-97.0); BG PCO2 64.8 mmHg (35.0-45.0); BG PH 7.244 (7.350-7.450); BG SAMPLE SITE LEFT BRACHIAL; BG TOTAL HEMOGLOBIN 8.7 g/dL (12.0-18.0); BG TOTAL RESPIRATORY RATE 22 b/min; BG VENT MODE VENT - AC
[2021-09-26] MEDS: DILTIAZEM HCL 5MG/ML 5ML VIAL IV PRN (12:00)
[2021-09-26] MEDS ORDERED: IOHEXOL-350 100 ML BOTTLE ONE (13:52)
[2021-09-26] MEDS: DIGOXIN 125MCG TABLET PO SCH (18:51)
[2021-09-26] MEDS: GUAIFENESIN-DM 200MG-20MG/10ML UDC PO PRN (22:22)
[2021-09-26] MEDS: TRAMADOL 50MG TABLET PO PRN (22:22)
[2021-09-26] MEDS: ACETAMINOPHEN 650MG/20.3ML UDC PO PRN (22:22)
[2021-09-27] VITALS (55 sets, daily range): BP systolic 88–149; BP diastolic 42–89
[2021-09-27] MEDS: DILTIAZEM HCL 60MG TABLET PO SCH ×4 (02:46→17:54)
[2021-09-27] MEDS: PHENYLEPHRINE 100 MG in DEXT 5% WATER 240 ML IV PRN ×3 (03:12→22:50)
[2021-09-27 05:21] LABS: CHLORIDE 108 mEq/L (98-107); HEMATOCRIT. 25.6 % (42.0-52.0); HEMOGLOBIN. 7.8 g/dL (14.0-18.0); MEAN CORPUSCULAR HEMOGLOBIN 24.9 pg (28.0-32.0); MEAN CORPUSCULAR VOLUME 82.2 fL (80.0-94.0); MEAN PLATELET VOLUME 8.8 fl (7.4-10.4); PLATELET 488 x1000/uL (130-400); RED BLOOD CELL COUNT 3.12 mill/uL (4.7-6.1); RED CELL DISTRIBUTION WIDTH 17.6 % (11.6-14.6)
[2021-09-27] MEDS: FUROSEMIDE 40MG TABLET PO SCH ×2 (05:28→09:00)
[2021-09-27] MEDS: ENOXAPARIN 80MG/0.8ML SYR SUBCUT SCH ×2 (05:30→17:54)
[2021-09-27 07:50] LABS: BG BASE EXCESS -7.5 mmol/L (-2.0-2.0); BG CARBOXYHEMOGLOBIN 0.3 % (0.5-1.5); BG HCO3 ACT 20.1 mmol/L (22.0-26.0); BG METHEMOGLOBIN 0.6 % (0.0-1.5); BG OXYGEN SATURATION 91.9 % (92.0-98.5); BG OXYHEMOGLOBIN 91.1 % (94.0-97.0); BG PH 7.205 (7.350-7.450); BG PO2 70.6 mmHg (75.0-100.0); BG SAMPLE SITE RIGHT RADIAL; BG TOTAL HEMOGLOBIN 8.4 g/dL (12.0-18.0); BG VENT MODE VENT - AC
[2021-09-27] MEDS: FENTANYL CITRATE/PF 2,500 MCG in SODIUM CHLORIDE 0.9% 200 ML IV PRN (07:52)
[2021-09-27] MEDS: SODIUM CHLORIDE 0.9% 1,000 ML IV SCH ×2 (08:59→22:50)
[2021-09-27] MEDS: GUAIFENESIN-DM 200MG-20MG/10ML UDC PO PRN (08:59)
[2021-09-27] MEDS: DOCUSATE SODIUM SUGAR FREE 100MG/10ML UDC PEG SCH (09:00)
[2021-09-27] MEDS: THIAMINE HCL 100MG TABLET PO SCH (09:03)
[2021-09-27] MEDS: POLYETHYLENE GLYCOL 3350 (17GM) 1 DOSE PACK PEG SCH (09:03)
[2021-09-27] MEDS: PREDNISONE 20MG TABLET PO SCH (09:03)
[2021-09-27 10:25] LABS: NUCLEATED RED BLOOD CELLS 1 /100 WBC; PLATELET ESTIMATE INCREASED
[2021-09-27] MEDS: DIGOXIN 125MCG TABLET PO SCH (17:54)
[2021-09-27] MEDS: SENNOSIDES/DOCUSATE SOD 8.6/50MG TABLET PEG SCH (22:44)
[2021-09-27] MEDS: TRAMADOL 50MG TABLET PO PRN (22:45)
[2021-09-27] MEDS: ACETAMINOPHEN 650MG/20.3ML UDC PO PRN (22:46)
[2021-09-28] VITALS (72 sets, daily range): BP systolic 79–167; BP diastolic 46–102
[2021-09-28] MEDS: DILTIAZEM HCL 60MG TABLET PO SCH ×5 (00:40→23:04)
[2021-09-28] MEDS: SODIUM CHLORIDE 0.9% 1,000 ML IV SCH ×3 (03:45→23:45)
[2021-09-28 04:50] LABS: HEMATOCRIT. 23.9 % (42.0-52.0); HEMOGLOBIN. 7.2 g/dL (14.0-18.0); MEAN CORPUSCULAR HEMOGLOBIN 24.4 pg (28.0-32.0); MEAN CORPUSCULAR VOLUME 81.1 fL (80.0-94.0); PLATELET 476 x1000/uL (130-400); RED BLOOD CELL COUNT 2.95 mill/uL (4.7-6.1); RED CELL DISTRIBUTION WIDTH 17.6 % (11.6-14.6)
[2021-09-28 05:00] LABS: CHLORIDE 106 mEq/L (98-107)
[2021-09-28 05:10] LABS: PHOSPHORUS 4.4 mg/dL (2.5-4.9)
[2021-09-28] MEDS: FUROSEMIDE 40MG TABLET PO SCH ×2 (05:41→17:07)
[2021-09-28] MEDS: ENOXAPARIN 80MG/0.8ML SYR SUBCUT SCH (05:42)
[2021-09-28] MEDS: POLYETHYLENE GLYCOL 3350 (17GM) 1 DOSE PACK PEG SCH (08:15)
[2021-09-28] MEDS: THIAMINE HCL 100MG TABLET PO SCH (08:15)
[2021-09-28] MEDS: DOCUSATE SODIUM SUGAR FREE 100MG/10ML UDC PEG SCH (08:15)
[2021-09-28] MEDS: PREDNISONE 20MG TABLET PO SCH (08:15)
[2021-09-28] MEDS: PHENYLEPHRINE 100 MG in DEXT 5% WATER 240 ML IV PRN ×2 (08:35→18:52)
[2021-09-28 09:33] LABS: BG BASE EXCESS -4.1 mmol/L (-2.0-2.0); BG FRACTION INSPIRED OXYGEN 95; BG HCO3 ACT 21.5 mmol/L (22.0-26.0); BG METHEMOGLOBIN 0.4 % (0.0-1.5); BG OXYHEMOGLOBIN 98.6 % (94.0-97.0); BG PCO2 41.9 mmHg (35.0-45.0); BG PH 7.329 (7.350-7.450); BG PO2 159.9 mmHg (75.0-100.0); BG SAMPLE SITE RIGHT RADIAL; BG TOTAL HEMOGLOBIN 7.7 g/dL (12.0-18.0); BG VENT MODE VENT - AC
[2021-09-28 10:49] LABS: NUCLEATED RED BLOOD CELLS 1 /100 WBC; PLATELET ESTIMATE INCREASED
[2021-09-28] MEDS: FENTANYL CITRATE/PF 2,500 MCG in SODIUM CHLORIDE 0.9% 200 ML IV PRN (16:09)
[2021-09-28] MEDS: DIGOXIN 125MCG TABLET PO SCH (17:06)
[2021-09-28] MEDS: SENNOSIDES/DOCUSATE SOD 8.6/50MG TABLET PEG SCH (21:00)
[2021-09-28] MEDS: GUAIFENESIN-DM 200MG-20MG/10ML UDC PO PRN (23:03)
[2021-09-28] MEDS: ACETAMINOPHEN 650MG/20.3ML UDC PO PRN (23:03)
[2021-09-28] MEDS: TRAMADOL 50MG TABLET PO PRN (23:03)
[2021-09-29] VITALS (79 sets, daily range): BP systolic 86–159; BP diastolic 43–106
[2021-09-29] MEDS: PHENYLEPHRINE 100 MG in DEXT 5% WATER 240 ML IV PRN ×2 (04:50→16:49)
[2021-09-29 04:51] LABS: HEMATOCRIT. 22.9 % (42.0-52.0); MEAN CORPUSCULAR HEMOGLOBIN 24.4 pg (28.0-32.0); MEAN CORPUSCULAR VOLUME 80.7 fL (80.0-94.0); MEAN PLATELET VOLUME 8.7 fl (7.4-10.4); PLATELET 443 x1000/uL (130-400); RED BLOOD CELL COUNT 2.84 mill/uL (4.7-6.1); RED CELL DISTRIBUTION WIDTH 17.3 % (11.6-14.6)
[2021-09-29 05:04] LABS: CHLORIDE 108 mEq/L (98-107)
[2021-09-29 05:10] LABS: PHOSPHORUS 3.3 mg/dL (2.5-4.9)
[2021-09-29 05:14] LABS: HEMOGLOBIN. 6.9 g/dL (14.0-18.0)
[2021-09-29] MEDS: DILTIAZEM HCL 60MG TABLET PO SCH ×3 (05:24→17:08)
[2021-09-29] MEDS: FENTANYL CITRATE/PF 2,500 MCG in SODIUM CHLORIDE 0.9% 200 ML IV PRN ×2 (05:24→21:44)
[2021-09-29] MEDS: FUROSEMIDE 40MG TABLET PO SCH ×2 (05:24→17:08)
[2021-09-29] MEDS: POLYETHYLENE GLYCOL 3350 (17GM) 1 DOSE PACK PEG SCH (08:12)
[2021-09-29] MEDS: DOCUSATE SODIUM SUGAR FREE 100MG/10ML UDC PEG SCH (08:12)
[2021-09-29] MEDS: PREDNISONE 20MG TABLET PO SCH (08:13)
[2021-09-29] MEDS: SODIUM CHLORIDE 0.9% 1,000 ML IV SCH ×2 (08:14→22:44)
[2021-09-29] MEDS: LACTULOSE 20G/30ML UDC PO SCH ×2 (12:53→22:38)
[2021-09-29 15:32] LABS: PLATELET ESTIMATE INCREASED
[2021-09-29 16:00] LABS: HEMATOCRIT 26.1 % (42.0-52.0); HEMOGLOBIN 8.2 g/dL (14.0-18.0)
[2021-09-29] MEDS ORDERED: MAGNESIUM 2 G PREMIX 50 ML IV NR (17:00)
[2021-09-29] MEDS: DIGOXIN 125MCG TABLET PO SCH (17:08)
[2021-09-29] MEDS ORDERED: PAMIDRONATE DISODIUM 90 MG in SODIUM CHLORIDE 0.9% 1,000 ML IV ONE (17:30)
[2021-09-29] MEDS: SENNOSIDES/DOCUSATE SOD 8.6/50MG TABLET PEG SCH (22:39)
[2021-09-30] VITALS (99 sets, daily range): BP systolic 71–128; BP diastolic 35–64
[2021-09-30] MEDS: DILTIAZEM HCL 60MG TABLET PO SCH ×5 (00:50→23:33)
[2021-09-30 04:47] LABS: HEMATOCRIT. 25.7 % (42.0-52.0); HEMOGLOBIN. 7.9 g/dL (14.0-18.0); MEAN CORPUSCULAR VOLUME 81.3 fL (80.0-94.0); MEAN PLATELET VOLUME 8.8 fl (7.4-10.4); PLATELET 402 x1000/uL (130-400); RED BLOOD CELL COUNT 3.16 mill/uL (4.7-6.1); RED CELL DISTRIBUTION WIDTH 16.9 % (11.6-14.6)
[2021-09-30 04:58] LABS: CHLORIDE 111 mEq/L (98-107)
[2021-09-30 05:04] LABS: PHOSPHORUS 2.3 mg/dL (2.5-4.9)
[2021-09-30] MEDS: LACTULOSE 20G/30ML UDC PO SCH ×3 (06:27→21:31)
[2021-09-30] MEDS: FUROSEMIDE 40MG TABLET PO SCH ×2 (06:28→18:52)
[2021-09-30] MEDS: POLYETHYLENE GLYCOL 3350 (17GM) 1 DOSE PACK PEG SCH (09:00)
[2021-09-30] MEDS: DOCUSATE SODIUM SUGAR FREE 100MG/10ML UDC PEG SCH (09:00)
[2021-09-30] MEDS: PREDNISONE 20MG TABLET PO SCH (09:46)
[2021-09-30] MEDS: SODIUM CHLORIDE 0.45% 1,000 ML IV SCH ×2 (09:47→18:30)
[2021-09-30 10:36] LABS: NUCLEATED RED BLOOD CELLS 1 /100 WBC; PLATELET ESTIMATE SLIGHTLY INCREASED
[2021-09-30] MEDS: ACETAMINOPHEN 650MG/20.3ML UDC PO PRN (12:31)
[2021-09-30] MEDS: PHENYLEPHRINE 100 MG in DEXT 5% WATER 240 ML IV PRN (14:00)
[2021-09-30] MEDS ORDERED: VANCOMYCIN 1 G PREMIX 200 ML IV NR (18:00)
[2021-09-30 18:26] LABS: BG BASE EXCESS -0.4 mmol/L (-2.0-2.0); BG CARBOXYHEMOGLOBIN 1.2 % (0.5-1.5); BG DEOXYHEMOGLOBIN 5.7 % (0.0-5.0); BG FRACTION INSPIRED OXYGEN 30; BG HCO3 ACT 22.1 mmol/L (22.0-26.0); BG METHEMOGLOBIN 0.7 % (0.0-1.5); BG OXYGEN SATURATION 94.2 % (92.0-98.5); BG OXYHEMOGLOBIN 92.4 % (94.0-97.0); BG PCO2 29.8 mmHg (35.0-45.0); BG PH 7.489 (7.350-7.450); BG PO2 66.6 mmHg (75.0-100.0); BG SAMPLE SITE RIGHT RADIAL; BG TOTAL HEMOGLOBIN 12.1 g/dL (12.0-18.0); BG VENT MODE VENT - SIMV
[2021-09-30] MEDS: DIGOXIN 125MCG TABLET PO SCH (18:52)
[2021-09-30] MEDS: CEFEPIME 2,000 MG in DEXT 5% WATER 100 ML IV SCH (19:57)
[2021-09-30] MEDS: ENOXAPARIN 60MG/0.6ML SYR SUBCUT SCH (21:12)
[2021-09-30] MEDS: SENNOSIDES/DOCUSATE SOD 8.6/50MG TABLET PEG SCH (21:31)
[2021-10-01] VITALS (92 sets, daily range): BP systolic 63–132; BP diastolic 34–77
[2021-10-01] MEDS: VANCOMYCIN 750 MG PREMIX 150 ML IV SCH ×3 (02:19→18:37)
[2021-10-01] MEDS: PHENYLEPHRINE 100 MG in DEXT 5% WATER 240 ML IV PRN ×3 (03:47→22:44)
[2021-10-01] MEDS: SODIUM CHLORIDE 0.45% 1,000 ML IV SCH ×2 (04:30→14:30)
[2021-10-01 05:20] LABS: CHLORIDE 109 mEq/L (98-107)
[2021-10-01 05:25] LABS: PHOSPHORUS 2.1 mg/dL (2.5-4.9)
[2021-10-01 05:29] LABS: HEMATOCRIT. 24.3 % (42.0-52.0); HEMOGLOBIN. 7.4 g/dL (14.0-18.0); MEAN CORPUSCULAR HEMOGLOBIN 25.7 pg (28.0-32.0); MEAN CORPUSCULAR VOLUME 84.4 fL (80.0-94.0); MEAN PLATELET VOLUME 9.3 fl (7.4-10.4); PLATELET 312 x1000/uL (130-400); RED BLOOD CELL COUNT 2.88 mill/uL (4.7-6.1); RED CELL DISTRIBUTION WIDTH 17.2 % (11.6-14.6)
[2021-10-01] MEDS: FUROSEMIDE 40MG TABLET PO SCH ×2 (05:49→18:37)
[2021-10-01] MEDS: LACTULOSE 20G/30ML UDC PO SCH ×3 (05:49→21:38)
[2021-10-01] MEDS: DILTIAZEM HCL 60MG TABLET PO SCH ×4 (06:00→23:48)
[2021-10-01] MEDS: CEFEPIME 2,000 MG in DEXT 5% WATER 100 ML IV SCH ×2 (06:55→17:09)
[2021-10-01 08:16] LABS: BG CARBOXYHEMOGLOBIN 0.3 % (0.5-1.5); BG DEOXYHEMOGLOBIN 5.2 % (0.0-5.0); BG HCO3 ACT 26.2 mmol/L (22.0-26.0); BG METHEMOGLOBIN 0.3 % (0.0-1.5); BG OXYGEN SATURATION 94.8 % (92.0-98.5); BG OXYHEMOGLOBIN 94.2 % (94.0-97.0); BG PCO2 44.2 mmHg (35.0-45.0); BG PO2 74.6 mmHg (75.0-100.0); BG SAMPLE SITE RIGHT BRACHIAL; BG TOTAL HEMOGLOBIN 8.7 g/dL (12.0-18.0); BG VENT MODE VENT - AC
[2021-10-01] MEDS: POLYETHYLENE GLYCOL 3350 (17GM) 1 DOSE PACK PEG SCH (08:33)
[2021-10-01] MEDS: DOCUSATE SODIUM SUGAR FREE 100MG/10ML UDC PEG SCH (08:33)
[2021-10-01] MEDS: ENOXAPARIN 60MG/0.6ML SYR SUBCUT SCH (08:37)
[2021-10-01] MEDS: PREDNISONE 20MG TABLET PO SCH (08:37)
[2021-10-01] MEDS: ACETAMINOPHEN 650MG/20.3ML UDC PO PRN ×2 (09:50→16:16)
[2021-10-01] MEDS: VASOPRESSIN 20 UNIT in SODIUM CHLORIDE 0.9% 99 ML IV PRN ×3 (09:58→17:10)
[2021-10-01] MEDS ORDERED: NOREPINEPHRINE 32 MG in DEXT 5% WATER 218 ML IV PRN (11:00)
[2021-10-01] MEDS ORDERED: ALBUMIN HUMAN 25GM/100ML (25%) IV NR (12:00)
[2021-10-01 14:39] LABS: NUCLEATED RED BLOOD CELLS 7 /100 WBC; PLATELET ESTIMATE NORMAL
[2021-10-01] MEDS: DIGOXIN 125MCG TABLET PO SCH (18:37)
[2021-10-01] MEDS: METOCLOPRAMIDE HCL 10MG/2ML VIAL IV SCH ×2 (18:37→23:48)
[2021-10-01] MEDS: MEROPENEM 1,000 MG in SODIUM CHLORIDE 0.9% 100 ML IV SCH (20:24)
[2021-10-01] MEDS: SENNOSIDES/DOCUSATE SOD 8.6/50MG TABLET PEG SCH (20:44)
[2021-10-02] VITALS (97 sets, daily range): BP systolic 71–133; BP diastolic 36–89
[2021-10-02] MEDS: SODIUM CHLORIDE 0.45% 1,000 ML IV SCH ×2 (01:00→11:30)
[2021-10-02] MEDS: MEROPENEM 1,000 MG in SODIUM CHLORIDE 0.9% 100 ML IV SCH ×3 (02:36→17:23)
[2021-10-02] MEDS: VANCOMYCIN 750 MG PREMIX 150 ML IV SCH (03:24)
[2021-10-02 05:05] LABS: HEMATOCRIT. 24.5 % (42.0-52.0); HEMOGLOBIN. 7.6 g/dL (14.0-18.0); MEAN CORPUSCULAR HEMOGLOBIN 25.8 pg (28.0-32.0); MEAN CORPUSCULAR VOLUME 82.9 fL (80.0-94.0); MEAN PLATELET VOLUME 9.5 fl (7.4-10.4); PLATELET 260 x1000/uL (130-400); RED BLOOD CELL COUNT 2.96 mill/uL (4.7-6.1); RED CELL DISTRIBUTION WIDTH 17.7 % (11.6-14.6)
[2021-10-02 05:14] LABS: CHLORIDE 107 mEq/L (98-107)
[2021-10-02 05:22] LABS: PHOSPHORUS 2.8 mg/dL (2.5-4.9)
[2021-10-02] MEDS: METOCLOPRAMIDE HCL 10MG/2ML VIAL IV SCH ×4 (05:53→23:05)
[2021-10-02] MEDS: FUROSEMIDE 40MG TABLET PO SCH ×2 (05:54→17:22)
[2021-10-02] MEDS: DILTIAZEM HCL 60MG TABLET PO SCH ×4 (05:54→23:05)
[2021-10-02] MEDS: LACTULOSE 20G/30ML UDC PO SCH ×3 (05:54→21:55)
[2021-10-02] MEDS: VASOPRESSIN 20 UNIT in SODIUM CHLORIDE 0.9% 99 ML IV PRN (06:42)
[2021-10-02] MEDS: DOCUSATE SODIUM SUGAR FREE 100MG/10ML UDC PEG SCH (07:32)
[2021-10-02] MEDS: POLYETHYLENE GLYCOL 3350 (17GM) 1 DOSE PACK PEG SCH (07:32)
[2021-10-02] MEDS: PHENYLEPHRINE 100 MG in DEXT 5% WATER 240 ML IV PRN ×2 (08:11→17:34)
[2021-10-02] MEDS ORDERED: PAMIDRONATE DISODIUM 90 MG in SODIUM CHLORIDE 0.9% 1,000 ML IV PRN (09:00)
[2021-10-02 09:31] LABS: BG BASE EXCESS -2.5 mmol/L (-2.0-2.0); BG CARBOXYHEMOGLOBIN 0.3 % (0.5-1.5); BG DEOXYHEMOGLOBIN 12.6 % (0.0-5.0); BG FRACTION INSPIRED OXYGEN 75; BG HCO3 ACT 22.8 mmol/L (22.0-26.0); BG METHEMOGLOBIN 0.5 % (0.0-1.5); BG OXYGEN SATURATION 87.3 % (92.0-98.5); BG OXYHEMOGLOBIN 86.6 % (94.0-97.0); BG PCO2 41.4 mmHg (35.0-45.0); BG PH 7.359 (7.350-7.450); BG PO2 54.4 mmHg (75.0-100.0); BG SAMPLE SITE RIGHT RADIAL; BG TOTAL HEMOGLOBIN 8.1 g/dL (12.0-18.0); BG TOTAL RESPIRATORY RATE 30 b/min; BG VENT MODE VENT - AC
[2021-10-02] MEDS: PREDNISONE 20MG TABLET PO SCH (09:57)
[2021-10-02] MEDS: ACETAMINOPHEN 650MG/20.3ML UDC PO PRN (11:26)
[2021-10-02 12:16] LABS: NUCLEATED RED BLOOD CELLS 1 /100 WBC; PLATELET ESTIMATE NORMAL
[2021-10-02] MEDS: DIGOXIN 125MCG TABLET PO SCH (17:22)
[2021-10-02] MEDS: RIFAXIMIN 550 MG TABLET PO SCH (17:25)
[2021-10-02] MEDS ORDERED: RIFAXIMIN 200MG TABLET PO SCH (21:00)
[2021-10-02] MEDS: SENNOSIDES/DOCUSATE SOD 8.6/50MG TABLET PEG SCH (21:55)
[2021-10-03] VITALS (101 sets, daily range): BP systolic 70–156; BP diastolic 33–92
[2021-10-03] MEDS: MEROPENEM 1,000 MG in SODIUM CHLORIDE 0.9% 100 ML IV SCH ×3 (03:38→17:26)
[2021-10-03] MEDS: VANCOMYCIN 750 MG PREMIX 150 ML IV SCH ×2 (03:39→21:37)
[2021-10-03] MEDS: PHENYLEPHRINE 100 MG in DEXT 5% WATER 240 ML IV PRN ×2 (04:47→17:49)
[2021-10-03] MEDS: DILTIAZEM HCL 60MG TABLET PO SCH ×3 (05:11→17:26)
[2021-10-03] MEDS: LACTULOSE 20G/30ML UDC PO SCH ×3 (05:25→21:35)
[2021-10-03] MEDS: METOCLOPRAMIDE HCL 10MG/2ML VIAL IV SCH ×3 (05:25→17:25)
[2021-10-03] MEDS: FUROSEMIDE 40MG TABLET PO SCH ×2 (05:25→17:26)
[2021-10-03] MEDS: RIFAXIMIN 550 MG TABLET PO SCH ×2 (05:25→17:25)
[2021-10-03 05:55] LABS: CHLORIDE 107 mEq/L (98-107)
[2021-10-03 06:01] LABS: HEMATOCRIT. 24.4 % (42.0-52.0); HEMOGLOBIN. 7.8 g/dL (14.0-18.0); MEAN CORPUSCULAR HEMOGLOBIN 25.6 pg (28.0-32.0); MEAN CORPUSCULAR VOLUME 80.5 fL (80.0-94.0); MEAN PLATELET VOLUME 8.9 fl (7.4-10.4); PLATELET 193 x1000/uL (130-400); RED BLOOD CELL COUNT 3.03 mill/uL (4.7-6.1); RED CELL DISTRIBUTION WIDTH 17.7 % (11.6-14.6)
[2021-10-03 06:29] LABS: DIGOXIN 1.7 ng/mL (0.9-2.0)
[2021-10-03 08:05] LABS: NUCLEATED RED BLOOD CELLS 3 /100 WBC; PLATELET ESTIMATE NORMAL
[2021-10-03] MEDS: ACETAMINOPHEN 650MG/20.3ML UDC PO PRN ×2 (08:58→16:39)
[2021-10-03] MEDS: DOCUSATE SODIUM SUGAR FREE 100MG/10ML UDC PEG SCH (09:00)
[2021-10-03] MEDS: PREDNISONE 20MG TABLET PO SCH (09:00)
[2021-10-03] MEDS: POLYETHYLENE GLYCOL 3350 (17GM) 1 DOSE PACK PEG SCH (09:00)
[2021-10-03] MEDS ORDERED: POLYVINYL ALCOHOL OPHTH DROPS 15ML BOTHEYE PRN (13:00)
[2021-10-03] MEDS: ZINC SULFATE 220 MG ( 50 ) CAPSULE PO SCH (13:05)
[2021-10-03] MEDS: ASCORBIC ACID 500 MG TABLET PO SCH (13:05)
[2021-10-03] MEDS: SENNOSIDES/DOCUSATE SOD 8.6/50MG TABLET PEG SCH (21:35)
[2021-10-04] VITALS (84 sets, daily range): BP systolic 74–140; BP diastolic 40–72
[2021-10-04] MEDS: METOCLOPRAMIDE HCL 10MG/2ML VIAL IV SCH ×4 (00:41→18:30)
[2021-10-04] MEDS: DILTIAZEM HCL 60MG TABLET PO SCH ×4 (00:42→18:39)
[2021-10-04] MEDS: MEROPENEM 1,000 MG in SODIUM CHLORIDE 0.9% 100 ML IV SCH ×3 (01:14→18:30)
[2021-10-04] MEDS: PHENYLEPHRINE 100 MG in DEXT 5% WATER 240 ML IV PRN (01:51)
[2021-10-04] MEDS: RIFAXIMIN 550 MG TABLET PO SCH ×2 (05:27→18:30)
[2021-10-04] MEDS: LACTULOSE 20G/30ML UDC PO SCH ×3 (05:27→22:29)
[2021-10-04 05:28] LABS: CHLORIDE 110 mEq/L (98-107)
[2021-10-04 05:43] LABS: HEMATOCRIT. 24.6 % (42.0-52.0); HEMOGLOBIN. 7.5 g/dL (14.0-18.0); MEAN CORPUSCULAR HEMOGLOBIN 24.5 pg (28.0-32.0); MEAN CORPUSCULAR VOLUME 80.9 fL (80.0-94.0); MEAN PLATELET VOLUME 10.5 fl (7.4-10.4); PLATELET 187 x1000/uL (130-400); RED BLOOD CELL COUNT 3.04 mill/uL (4.7-6.1); RED CELL DISTRIBUTION WIDTH 17.6 % (11.6-14.6)
[2021-10-04 07:54] LABS: NUCLEATED RED BLOOD CELLS 1 /100 WBC; PLATELET ESTIMATE NORMAL
[2021-10-04 09:06] LABS: BG BASE EXCESS -2.8 mmol/L (-2.0-2.0); BG CARBOXYHEMOGLOBIN 0.3 % (0.5-1.5); BG DEOXYHEMOGLOBIN 6.3 % (0.0-5.0); BG FRACTION INSPIRED OXYGEN 100; BG HCO3 ACT 24.1 mmol/L (22.0-26.0); BG METHEMOGLOBIN 0.2 % (0.0-1.5); BG OXYGEN SATURATION 93.7 % (92.0-98.5); BG OXYHEMOGLOBIN 93.2 % (94.0-97.0); BG PCO2 53.1 mmHg (35.0-45.0); BG PH 7.275 (7.350-7.450); BG SAMPLE SITE RIGHT RADIAL; BG TOTAL HEMOGLOBIN 8.7 g/dL (12.0-18.0); BG VENT MODE VENT - AC
[2021-10-04] MEDS: MIDODRINE HCL 5MG TABLET PO SCH ×3 (09:09→17:00)
[2021-10-04] MEDS: PREDNISONE 20MG TABLET PO SCH (09:10)
[2021-10-04] MEDS: ZINC SULFATE 220 MG ( 50 ) CAPSULE PO SCH (09:10)
[2021-10-04] MEDS: DOCUSATE SODIUM SUGAR FREE 100MG/10ML UDC PEG SCH (09:10)
[2021-10-04] MEDS: ASCORBIC ACID 500 MG TABLET PO SCH (09:10)
[2021-10-04] MEDS: POLYETHYLENE GLYCOL 3350 (17GM) 1 DOSE PACK PEG SCH (09:10)
[2021-10-04] MEDS ORDERED: PAMIDRONATE DISODIUM 90 MG in SODIUM CHLORIDE 0.9% 500 ML IV SCH (13:00)
[2021-10-04] MEDS: VANCOMYCIN 750 MG PREMIX 150 ML IV SCH (16:00)
[2021-10-04] MEDS: IPRATROPIUM/ALBUTEROL 0.5-3(2.5)MG/3ML NEB HHN PRN (20:27)
[2021-10-04] MEDS: SENNOSIDES/DOCUSATE SOD 8.6/50MG TABLET PEG SCH (22:30)
[2021-10-05] VITALS (89 sets, daily range): BP systolic 68–124; BP diastolic 42–85
[2021-10-05] MEDS: METOCLOPRAMIDE HCL 10MG/2ML VIAL IV SCH ×4 (01:21→18:18)
[2021-10-05] MEDS: DILTIAZEM HCL 60MG TABLET PO SCH ×4 (01:22→18:18)
[2021-10-05] MEDS: MEROPENEM 1,000 MG in SODIUM CHLORIDE 0.9% 100 ML IV SCH ×3 (01:46→18:18)
[2021-10-05] MEDS: PHENYLEPHRINE 100 MG in DEXT 5% WATER 240 ML IV PRN ×3 (03:13→16:24)
[2021-10-05 05:30] LABS: CHLORIDE 113 mEq/L (98-107)
[2021-10-05] MEDS: LACTULOSE 20G/30ML UDC PO SCH ×3 (05:50→21:03)
[2021-10-05] MEDS: RIFAXIMIN 550 MG TABLET PO SCH ×2 (05:51→18:18)
[2021-10-05 07:57] LABS: HEMATOCRIT. 23.4 % (42.0-52.0); MEAN CORPUSCULAR HEMOGLOBIN 24.9 pg (28.0-32.0); MEAN PLATELET VOLUME 11.2 fl (7.4-10.4); PLATELET 163 x1000/uL (130-400); RED BLOOD CELL COUNT 2.81 mill/uL (4.7-6.1); RED CELL DISTRIBUTION WIDTH 17.5 % (11.6-14.6)
[2021-10-05 09:05] LABS: BG BASE EXCESS -0.1 mmol/L (-2.0-2.0); BG CARBOXYHEMOGLOBIN 0.2 % (0.5-1.5); BG DEOXYHEMOGLOBIN 10.4 % (0.0-5.0); BG FRACTION INSPIRED OXYGEN 100; BG HCO3 ACT 26.4 mmol/L (22.0-26.0); BG METHEMOGLOBIN 0.4 % (0.0-1.5); BG OXYGEN SATURATION 89.5 % (92.0-98.5); BG PCO2 53.9 mmHg (35.0-45.0); BG PH 7.308 (7.350-7.450); BG SAMPLE SITE LEFT RADIAL; BG TOTAL HEMOGLOBIN 7.9 g/dL (12.0-18.0); BG VENT MODE VENT - AC
[2021-10-05] MEDS: ASCORBIC ACID 500 MG TABLET PO SCH (09:55)
[2021-10-05] MEDS: ZINC SULFATE 220 MG ( 50 ) CAPSULE PO SCH (09:55)
[2021-10-05] MEDS: PREDNISONE 20MG TABLET PO SCH (09:55)
[2021-10-05] MEDS: MIDODRINE HCL 5MG TABLET PO SCH ×3 (09:56→17:58)
[2021-10-05] MEDS: POLYETHYLENE GLYCOL 3350 (17GM) 1 DOSE PACK PEG SCH (09:56)
[2021-10-05] MEDS: DOCUSATE SODIUM SUGAR FREE 100MG/10ML UDC PEG SCH (09:56)
[2021-10-05] MEDS: MORPHINE SULFATE 2 MG/ML CPJ (NOT FOR IM USE) IV PRN ×2 (09:57→10:48)
[2021-10-05 10:31] LABS: PLATELET ESTIMATE NORMAL
[2021-10-05] MEDS: VANCOMYCIN 750 MG PREMIX 150 ML IV SCH (10:56)
[2021-10-05] MEDS ORDERED: SODIUM POLYSTYRENE SULFONATE 15 G/60 ML BOT PO NR (12:30)
[2021-10-05] MEDS: DEXTROSE 5% WATER 1,000 ML IV SCH (13:03)
[2021-10-05] MEDS: VASOPRESSIN 20 UNIT in SODIUM CHLORIDE 0.9% 99 ML IV PRN (20:53)
[2021-10-05] MEDS: SENNOSIDES/DOCUSATE SOD 8.6/50MG TABLET PEG SCH (21:03)
[2021-10-06] VITALS (100 sets, daily range): BP systolic 58–138; BP diastolic 19–126
[2021-10-06] MEDS: METOCLOPRAMIDE HCL 10MG/2ML VIAL IV SCH ×4 (01:03→17:59)
[2021-10-06] MEDS: PHENYLEPHRINE 100 MG in DEXT 5% WATER 240 ML IV PRN ×3 (01:03→17:09)
[2021-10-06] MEDS: DILTIAZEM HCL 60MG TABLET PO SCH ×5 (01:04→23:57)
[2021-10-06] MEDS: MEROPENEM 1,000 MG in SODIUM CHLORIDE 0.9% 100 ML IV SCH ×2 (02:18→09:13)
[2021-10-06] MEDS: LACTULOSE 20G/30ML UDC PO SCH ×3 (06:03→21:54)
[2021-10-06] MEDS: VANCOMYCIN 750 MG PREMIX 150 ML IV SCH ×2 (06:03→21:54)
[2021-10-06] MEDS: RIFAXIMIN 550 MG TABLET PO SCH ×2 (06:04→17:59)
[2021-10-06 06:07] LABS: HEMATOCRIT. 22.7 % (42.0-52.0); MEAN CORPUSCULAR HEMOGLOBIN 24.8 pg (28.0-32.0); MEAN CORPUSCULAR VOLUME 81.5 fL (80.0-94.0); MEAN PLATELET VOLUME 11.1 fl (7.4-10.4); PLATELET 145 x1000/uL (130-400); RED BLOOD CELL COUNT 2.79 mill/uL (4.7-6.1); RED CELL DISTRIBUTION WIDTH 17.1 % (11.6-14.6)
[2021-10-06 06:11] LABS: CHLORIDE 113 mEq/L (98-107)
[2021-10-06 06:54] LABS: HEMOGLOBIN. 6.9 g/dL (14.0-18.0)
[2021-10-06 07:34] LABS: BG CARBOXYHEMOGLOBIN 0.3 % (0.5-1.5); BG DEOXYHEMOGLOBIN 3.8 % (0.0-5.0); BG HCO3 ACT 22.6 mmol/L (22.0-26.0); BG METHEMOGLOBIN 0.5 % (0.0-1.5); BG OXYGEN SATURATION 96.2 % (92.0-98.5); BG OXYHEMOGLOBIN 95.4 % (94.0-97.0); BG PCO2 37.4 mmHg (35.0-45.0); BG PH 7.399 (7.350-7.450); BG PO2 90.7 mmHg (75.0-100.0); BG SAMPLE SITE RIGHT RADIAL; BG TOTAL HEMOGLOBIN 7.4 g/dL (12.0-18.0); BG VENT MODE VENT - AC
[2021-10-06] MEDS: IPRATROPIUM/ALBUTEROL 0.5-3(2.5)MG/3ML NEB HHN PRN ×2 (08:25→16:20)
[2021-10-06] MEDS: DEXTROSE 5% WATER 1,000 ML IV SCH ×2 (09:07→21:59)
[2021-10-06] MEDS: POLYETHYLENE GLYCOL 3350 (17GM) 1 DOSE PACK PEG SCH (09:11)
[2021-10-06] MEDS: ASCORBIC ACID 500 MG TABLET PO SCH (09:11)
[2021-10-06] MEDS: ZINC SULFATE 220 MG ( 50 ) CAPSULE PO SCH (09:11)
[2021-10-06] MEDS: MIDODRINE HCL 5MG TABLET PO SCH ×3 (09:11→17:10)
[2021-10-06] MEDS: VASOPRESSIN 20 UNIT in SODIUM CHLORIDE 0.9% 99 ML IV PRN ×2 (09:30→17:08)
[2021-10-06] MEDS: PREDNISONE 20MG TABLET PO SCH (10:21)
[2021-10-06 11:22] LABS: PLATELET ESTIMATE NORMAL
[2021-10-06] MEDS: SENNOSIDES/DOCUSATE SOD 8.6/50MG TABLET PEG SCH (21:54)
[2021-10-07] VITALS (86 sets, daily range): BP systolic 65–145; BP diastolic 18–92
[2021-10-07] MEDS: METOCLOPRAMIDE HCL 10MG/2ML VIAL IV SCH ×4 (00:01→18:59)
[2021-10-07] MEDS: VASOPRESSIN 20 UNIT in SODIUM CHLORIDE 0.9% 99 ML IV PRN ×3 (02:53→21:00)
[2021-10-07] MEDS: PHENYLEPHRINE 100 MG in DEXT 5% WATER 240 ML IV PRN ×3 (05:24→23:45)
[2021-10-07 05:55] LABS: HEMATOCRIT. 22.3 % (42.0-52.0); MEAN CORPUSCULAR HEMOGLOBIN 25.3 pg (28.0-32.0); MEAN CORPUSCULAR VOLUME 81.5 fL (80.0-94.0); MEAN PLATELET VOLUME 11.7 fl (7.4-10.4); PLATELET 146 x1000/uL (130-400); RED BLOOD CELL COUNT 2.73 mill/uL (4.7-6.1); RED CELL DISTRIBUTION WIDTH 17.6 % (11.6-14.6)
[2021-10-07] MEDS: DILTIAZEM HCL 60MG TABLET PO SCH (06:00)
[2021-10-07 06:03] LABS: CHLORIDE 111 mEq/L (98-107)
[2021-10-07 06:12] LABS: HEMOGLOBIN. 6.9 g/dL (14.0-18.0); PHOSPHORUS 4.3 mg/dL (2.5-4.9)
[2021-10-07] MEDS: LACTULOSE 20G/30ML UDC PO SCH ×4 (06:48→21:22)
[2021-10-07] MEDS: RIFAXIMIN 550 MG TABLET PO SCH ×2 (06:48→18:59)
[2021-10-07 08:41] LABS: PLATELET ESTIMATE NORMAL
[2021-10-07 09:13] LABS: BG CARBOXYHEMOGLOBIN 0.2 % (0.5-1.5); BG FRACTION INSPIRED OXYGEN 100; BG HCO3 ACT 22.2 mmol/L (22.0-26.0); BG METHEMOGLOBIN 0.3 % (0.0-1.5); BG OXYHEMOGLOBIN 95.5 % (94.0-97.0); BG PCO2 40.4 mmHg (35.0-45.0); BG PH 7.358 (7.350-7.450); BG PO2 86.9 mmHg (75.0-100.0); BG SAMPLE SITE RIGHT RADIAL; BG TOTAL HEMOGLOBIN 7.3 g/dL (12.0-18.0); BG VENT MODE VENT - AC
[2021-10-07] MEDS: ZINC SULFATE 220 MG ( 50 ) CAPSULE PO SCH (09:15)
[2021-10-07] MEDS: MIDODRINE HCL 5MG TABLET PO SCH ×3 (09:15→18:59)
[2021-10-07] MEDS: ASCORBIC ACID 500 MG TABLET PO SCH (09:15)
[2021-10-07] MEDS: PREDNISONE 20MG TABLET PO SCH (09:15)
[2021-10-07] MEDS: POLYETHYLENE GLYCOL 3350 (17GM) 1 DOSE PACK PEG SCH (09:15)
[2021-10-07] MEDS: DEXTROSE 5% WATER 1,000 ML IV SCH ×2 (09:16→20:45)
[2021-10-07] MEDS: POLYVINYL ALCOHOL OPHTH DROPS 15ML BOTHEYE PRN (09:23)
[2021-10-07] MEDS ORDERED: AMIODARONE HCL 150 MG in DEXT 5% WATER 100 ML IV NR (11:30)
[2021-10-07] MEDS: VANCOMYCIN 750 MG PREMIX 150 ML IV SCH (20:45)
[2021-10-07] MEDS: SENNOSIDES/DOCUSATE SOD 8.6/50MG TABLET PEG SCH (21:00)
[2021-10-08] VITALS (54 sets, daily range): BP systolic 87–132; BP diastolic 53–85
[2021-10-08] MEDS: METOCLOPRAMIDE HCL 10MG/2ML VIAL IV SCH ×4 (05:23→18:50)
[2021-10-08] MEDS: RIFAXIMIN 550 MG TABLET PO SCH (05:23)
[2021-10-08] MEDS: LACTULOSE 20G/30ML UDC PO SCH ×3 (05:23→22:27)
[2021-10-08] MEDS: VASOPRESSIN 20 UNIT in SODIUM CHLORIDE 0.9% 99 ML IV PRN (05:23)
[2021-10-08 06:48] LABS: CHLORIDE 108 mEq/L (98-107)
[2021-10-08 06:59] LABS: PHOSPHORUS 4.1 mg/dL (2.5-4.9)
[2021-10-08] MEDS: MIDODRINE HCL 5MG TABLET PO SCH ×3 (09:00→17:00)
[2021-10-08] MEDS: PREDNISONE 20MG TABLET PO SCH (09:00)
[2021-10-08] MEDS: ASCORBIC ACID 500 MG TABLET PO SCH (09:00)
[2021-10-08] MEDS: POLYETHYLENE GLYCOL 3350 (17GM) 1 DOSE PACK PEG SCH (09:00)
[2021-10-08] MEDS: ZINC SULFATE 220 MG ( 50 ) CAPSULE PO SCH (09:00)
[2021-10-08 09:08] LABS: BG BASE EXCESS -8.7 mmol/L (-2.0-2.0); BG CARBOXYHEMOGLOBIN 0.3 % (0.5-1.5); BG DEOXYHEMOGLOBIN 2.4 % (0.0-5.0); BG FRACTION INSPIRED OXYGEN 100; BG HCO3 ACT 16.7 mmol/L (22.0-26.0); BG METHEMOGLOBIN 0.3 % (0.0-1.5); BG OXYGEN SATURATION 97.6 % (92.0-98.5); BG PCO2 34.2 mmHg (35.0-45.0); BG PH 7.306 (7.350-7.450); BG PO2 120.4 mmHg (75.0-100.0); BG SAMPLE SITE RIGHT RADIAL; BG TOTAL HEMOGLOBIN 11.3 g/dL (12.0-18.0); BG VENT MODE VENT - AC
[2021-10-08 09:22] LABS: HEMATOCRIT. 28.6 % (42.0-52.0); HEMOGLOBIN. 9.1 g/dL (14.0-18.0); MEAN CORPUSCULAR VOLUME 81.6 fL (80.0-94.0); MEAN PLATELET VOLUME 11.6 fl (7.4-10.4); RED CELL DISTRIBUTION WIDTH 16.4 % (11.6-14.6)
[2021-10-08 09:24] LABS: PLATELET 161 x1000/uL (130-400)
[2021-10-08] MEDS: VANCOMYCIN 750 MG PREMIX 150 ML IV SCH (10:02)
[2021-10-08] MEDS: DEXTROSE 5% WATER 1,000 ML IV SCH (10:50)
[2021-10-08 12:01] LABS: PLATELET ESTIMATE NORMAL
[2021-10-08] MEDS: SENNOSIDES/DOCUSATE SOD 8.6/50MG TABLET PEG SCH (21:03)
[2021-10-08] MEDS: ENOXAPARIN 60MG/0.6ML SYR SUBCUT SCH (21:04)
[2021-10-09] VITALS (84 sets, daily range): BP systolic 84–132; BP diastolic 51–102
[2021-10-09] MEDS: DEXTROSE 5% WATER 1,000 ML IV SCH ×2 (00:28→11:50)
[2021-10-09] MEDS: METOCLOPRAMIDE HCL 10MG/2ML VIAL IV SCH ×4 (00:33→18:01)
[2021-10-09] MEDS: VASOPRESSIN 20 UNIT in SODIUM CHLORIDE 0.9% 99 ML IV PRN (02:45)
[2021-10-09] MEDS: PHENYLEPHRINE 100 MG in DEXT 5% WATER 240 ML IV PRN (05:50)
[2021-10-09] MEDS: VANCOMYCIN 750 MG PREMIX 150 ML IV SCH ×2 (05:54→21:53)
[2021-10-09] MEDS: LACTULOSE 20G/30ML UDC PO SCH ×3 (06:06→22:24)
[2021-10-09 06:15] LABS: HEMATOCRIT. 28.9 % (42.0-52.0); HEMOGLOBIN. 9.2 g/dL (14.0-18.0); MEAN CORPUSCULAR HEMOGLOBIN 25.7 pg (28.0-32.0); MEAN CORPUSCULAR VOLUME 81.1 fL (80.0-94.0); RED BLOOD CELL COUNT 3.56 mill/uL (4.7-6.1); RED CELL DISTRIBUTION WIDTH 16.6 % (11.6-14.6)
[2021-10-09 06:18] LABS: CHLORIDE 106 mEq/L (98-107)
[2021-10-09 06:30] LABS: PHOSPHORUS 3.8 mg/dL (2.5-4.9)
[2021-10-09 08:26] LABS: PLATELET 148 x1000/uL (130-400)
[2021-10-09 08:32] LABS: PLATELET ESTIMATE NORMAL
[2021-10-09] MEDS: ZINC SULFATE 220 MG ( 50 ) CAPSULE PO SCH (09:00)
[2021-10-09] MEDS: ASCORBIC ACID 500 MG TABLET PO SCH (09:00)
[2021-10-09] MEDS: PREDNISONE 20MG TABLET PO SCH (09:00)
[2021-10-09] MEDS: MIDODRINE HCL 5MG TABLET PO SCH ×3 (09:00→17:47)
[2021-10-09] MEDS: ENOXAPARIN 60MG/0.6ML SYR SUBCUT SCH (09:00)
[2021-10-09] MEDS: POLYETHYLENE GLYCOL 3350 (17GM) 1 DOSE PACK PEG SCH (09:00)
[2021-10-09 12:06] LABS: BG BASE EXCESS -5.7 mmol/L (-2.0-2.0); BG DEOXYHEMOGLOBIN 3.7 % (0.0-5.0); BG FRACTION INSPIRED OXYGEN 60; BG HCO3 ACT 19.8 mmol/L (22.0-26.0); BG METHEMOGLOBIN 0.4 % (0.0-1.5); BG OXYGEN SATURATION 96.3 % (92.0-98.5); BG OXYHEMOGLOBIN 95.9 % (94.0-97.0); BG PCO2 38.7 mmHg (35.0-45.0); BG PH 7.327 (7.350-7.450); BG PO2 89.4 mmHg (75.0-100.0); BG TOTAL HEMOGLOBIN 9.1 g/dL (12.0-18.0); BG VENT MODE VENT - AC
[2021-10-09] MEDS: IPRATROPIUM/ALBUTEROL 0.5-3(2.5)MG/3ML NEB HHN PRN (20:47)
[2021-10-09] MEDS: SENNOSIDES/DOCUSATE SOD 8.6/50MG TABLET PEG SCH (21:15)
[2021-10-10] VITALS (91 sets, daily range): BP systolic 80–135; BP diastolic 38–89
[2021-10-10] MEDS: METOCLOPRAMIDE HCL 10MG/2ML VIAL IV SCH ×5 (01:31→23:24)
[2021-10-10] MEDS: PHENYLEPHRINE 100 MG in DEXT 5% WATER 240 ML IV PRN ×2 (01:31→12:19)
[2021-10-10] MEDS: DEXTROSE 5% WATER 1,000 ML IV SCH (01:54)
[2021-10-10] MEDS: LACTULOSE 20G/30ML UDC PO SCH ×3 (06:14→21:57)
[2021-10-10 06:20] LABS: CHLORIDE 102 mEq/L (98-107)
[2021-10-10 06:21] LABS: HEMATOCRIT. 28.9 % (42.0-52.0); HEMOGLOBIN. 9.1 g/dL (14.0-18.0); MEAN CORPUSCULAR HEMOGLOBIN 25.9 pg (28.0-32.0); MEAN CORPUSCULAR VOLUME 82.3 fL (80.0-94.0); MEAN PLATELET VOLUME 10.7 fl (7.4-10.4); PLATELET 148 x1000/uL (130-400); RED BLOOD CELL COUNT 3.51 mill/uL (4.7-6.1); RED CELL DISTRIBUTION WIDTH 16.9 % (11.6-14.6)
[2021-10-10 06:31] LABS: PHOSPHORUS 3.9 mg/dL (2.5-4.9)
[2021-10-10 08:34] LABS: NUCLEATED RED BLOOD CELLS 2 /100 WBC
[2021-10-10 08:35] LABS: PLATELET ESTIMATE NORMAL
[2021-10-10] MEDS: IPRATROPIUM/ALBUTEROL 0.5-3(2.5)MG/3ML NEB HHN PRN ×3 (08:47→16:07)
[2021-10-10 08:57] LABS: BG BASE EXCESS -6.4 mmol/L (-2.0-2.0); BG CARBOXYHEMOGLOBIN 0.3 % (0.5-1.5); BG DEOXYHEMOGLOBIN 3.3 % (0.0-5.0); BG FRACTION INSPIRED OXYGEN 60; BG HCO3 ACT 18.8 mmol/L (22.0-26.0); BG METHEMOGLOBIN 0.2 % (0.0-1.5); BG OXYGEN SATURATION 96.7 % (92.0-98.5); BG OXYHEMOGLOBIN 96.2 % (94.0-97.0); BG PCO2 36.2 mmHg (35.0-45.0); BG PH 7.334 (7.350-7.450); BG PO2 96.5 mmHg (75.0-100.0); BG SAMPLE SITE RIGHT RADIAL; BG TOTAL HEMOGLOBIN 9.5 g/dL (12.0-18.0); BG VENT MODE VENT - AC/VC
[2021-10-10] MEDS: PREDNISONE 20MG TABLET PO SCH (09:00)
[2021-10-10] MEDS: ZINC SULFATE 220 MG ( 50 ) CAPSULE PO SCH (09:00)
[2021-10-10] MEDS: ASCORBIC ACID 500 MG TABLET PO SCH (09:00)
[2021-10-10] MEDS: MIDODRINE HCL 5MG TABLET PO SCH ×3 (09:00→17:41)
[2021-10-10] MEDS: POLYETHYLENE GLYCOL 3350 (17GM) 1 DOSE PACK PEG SCH (09:00)
[2021-10-10] MEDS ORDERED: DIGOXIN 500MCG/2ML AMP IV NR (09:45)
[2021-10-10] MEDS ORDERED: ALBUMIN HUMAN 25GM/500ML (5%) IV NR (11:30)
[2021-10-10] MEDS: DEXT 5%/0.45% NACL 1000ML 1,000 ML IV SCH (15:01)
[2021-10-10] MEDS: VANCOMYCIN 750 MG PREMIX 150 ML IV SCH (15:01)
[2021-10-10] MEDS: RIFAXIMIN 550 MG TABLET PO SCH (21:57)
[2021-10-10] MEDS: SENNOSIDES/DOCUSATE SOD 8.6/50MG TABLET PEG SCH (21:57)
[2021-10-10] MEDS: ACETAMINOPHEN 650MG/20.3ML UDC PO PRN (21:57)
[2021-10-11] VITALS (81 sets, daily range): BP systolic 78–158; BP diastolic 56–96
[2021-10-11] MEDS: METOCLOPRAMIDE HCL 10MG/2ML VIAL IV SCH ×3 (06:35→17:15)
[2021-10-11] MEDS: LACTULOSE 20G/30ML UDC PO SCH ×3 (06:35→22:00)
[2021-10-11 06:59] LABS: HEMATOCRIT. 24.6 % (42.0-52.0); MEAN CORPUSCULAR HEMOGLOBIN 26.9 pg (28.0-32.0); MEAN CORPUSCULAR VOLUME 82.4 fL (80.0-94.0); MEAN PLATELET VOLUME 10.9 fl (7.4-10.4); PLATELET 136 x1000/uL (130-400); RED BLOOD CELL COUNT 2.98 mill/uL (4.7-6.1); RED CELL DISTRIBUTION WIDTH 16.8 % (11.6-14.6)
[2021-10-11 07:56] LABS: CHLORIDE 102 mEq/L (98-107)
[2021-10-11 07:59] LABS: PHOSPHORUS 4.6 mg/dL (2.5-4.9)
[2021-10-11 08:18] LABS: BG BASE EXCESS -6.9 mmol/L (-2.0-2.0); BG CARBOXYHEMOGLOBIN 0.3 % (0.5-1.5); BG DEOXYHEMOGLOBIN 2.5 % (0.0-5.0); BG FRACTION INSPIRED OXYGEN 60; BG HCO3 ACT 19.1 mmol/L (22.0-26.0); BG METHEMOGLOBIN 0.6 % (0.0-1.5); BG OXYGEN SATURATION 97.5 % (92.0-98.5); BG OXYHEMOGLOBIN 96.6 % (94.0-97.0); BG PCO2 39.9 mmHg (35.0-45.0); BG PH 7.297 (7.350-7.450); BG PO2 104.7 mmHg (75.0-100.0); BG SAMPLE SITE RIGHT RADIAL; BG TOTAL HEMOGLOBIN 8.8 g/dL (12.0-18.0); BG TOTAL RESPIRATORY RATE 40 b/min; BG VENT MODE VENT - AC
[2021-10-11] MEDS: ZINC SULFATE 220 MG ( 50 ) CAPSULE PO SCH (08:22)
[2021-10-11] MEDS: POLYETHYLENE GLYCOL 3350 (17GM) 1 DOSE PACK PEG SCH (08:22)
[2021-10-11] MEDS: RIFAXIMIN 550 MG TABLET PO SCH ×2 (08:22→21:10)
[2021-10-11] MEDS: PREDNISONE 20MG TABLET PO SCH (08:22)
[2021-10-11] MEDS: ASCORBIC ACID 500 MG TABLET PO SCH (08:22)
[2021-10-11] MEDS: MIDODRINE HCL 5MG TABLET PO SCH ×3 (08:22→17:15)
[2021-10-11] MEDS: IPRATROPIUM/ALBUTEROL 0.5-3(2.5)MG/3ML NEB HHN PRN (08:57)
[2021-10-11 09:06] LABS: PLATELET ESTIMATE NORMAL
[2021-10-11] MEDS: DEXT 5%/0.45% NACL 1000ML 1,000 ML IV SCH (11:32)
[2021-10-11] MEDS: POLYVINYL ALCOHOL OPHTH DROPS 15ML BOTHEYE SCH ×2 (14:00→17:15)
[2021-10-12] VITALS (52 sets, daily range): BP systolic 100–151; BP diastolic 56–96
[2021-10-12] MEDS: METOCLOPRAMIDE HCL 10MG/2ML VIAL IV SCH ×5 (00:07→23:14)
[2021-10-12 06:45] LABS: BASOPHILS % 0.4 % (0.0-2.0); HEMATOCRIT. 26.8 % (42.0-52.0); HEMOGLOBIN. 8.5 g/dL (14.0-18.0); LYMPHOCYTES % 7.7 % (20.0-50.0); MEAN CORPUSCULAR HEMOGLOBIN 26.3 pg (28.0-32.0); MEAN CORPUSCULAR VOLUME 82.4 fL (80.0-94.0); MONOCYTES % 3.4 % (2.0-8.0); NEUTROPHILS % 88.5 % (40.0-76.0); RED BLOOD CELL COUNT 3.25 mill/uL (4.7-6.1)
[2021-10-12 06:55] LABS: CHLORIDE 104 mEq/L (98-107)
[2021-10-12] MEDS: DEXT 5%/0.45% NACL 1000ML 1,000 ML IV SCH (06:57)
[2021-10-12] MEDS: LACTULOSE 20G/30ML UDC PO SCH ×3 (06:57→20:30)
[2021-10-12 07:04] LABS: PHOSPHORUS 4.8 mg/dL (2.5-4.9)
[2021-10-12] MEDS: PREDNISONE 20MG TABLET PO SCH (08:21)
[2021-10-12] MEDS: RIFAXIMIN 550 MG TABLET PO SCH ×2 (08:21→20:30)
[2021-10-12] MEDS: ASCORBIC ACID 500 MG TABLET PO SCH (08:21)
[2021-10-12] MEDS: ZINC SULFATE 220 MG ( 50 ) CAPSULE PO SCH (08:21)
[2021-10-12] MEDS: MIDODRINE HCL 5MG TABLET PO SCH ×3 (08:22→17:44)
[2021-10-12] MEDS: POLYVINYL ALCOHOL OPHTH DROPS 15ML BOTHEYE SCH ×3 (08:22→17:44)
[2021-10-12 10:48] LABS: BG BASE EXCESS -9.1 mmol/L (-2.0-2.0); BG CARBOXYHEMOGLOBIN 0.3 % (0.5-1.5); BG DEOXYHEMOGLOBIN 2.6 % (0.0-5.0); BG FRACTION INSPIRED OXYGEN 60; BG HCO3 ACT 16.6 mmol/L (22.0-26.0); BG METHEMOGLOBIN 0.3 % (0.0-1.5); BG OXYGEN SATURATION 97.4 % (92.0-98.5); BG OXYHEMOGLOBIN 96.8 % (94.0-97.0); BG PCO2 35.2 mmHg (35.0-45.0); BG PH 7.292 (7.350-7.450); BG PO2 106.6 mmHg (75.0-100.0); BG SAMPLE SITE RIGHT RADIAL; BG TOTAL HEMOGLOBIN 9.2 g/dL (12.0-18.0); BG VENT MODE VENT - AC
[2021-10-12] MEDS: DILTIAZEM HCL 30MG TABLET PO SCH ×2 (17:43→23:15)
[2021-10-13] VITALS (12 sets, daily range): BP systolic 98–123; BP diastolic 58–76
[2021-10-13] MEDS: DILTIAZEM HCL 30MG TABLET PO SCH ×4 (05:36→23:48)
[2021-10-13] MEDS: METOCLOPRAMIDE HCL 10MG/2ML VIAL IV SCH ×4 (05:36→23:48)
[2021-10-13] MEDS: LACTULOSE 20G/30ML UDC PO SCH ×3 (06:38→21:00)
[2021-10-13 06:46] LABS: HEMATOCRIT. 24.7 % (42.0-52.0); HEMOGLOBIN. 8.2 g/dL (14.0-18.0); MEAN CORPUSCULAR HEMOGLOBIN 27.4 pg (28.0-32.0); MEAN CORPUSCULAR VOLUME 82.7 fL (80.0-94.0); PLATELET 146 x1000/uL (130-400); RED BLOOD CELL COUNT 2.99 mill/uL (4.7-6.1); RED CELL DISTRIBUTION WIDTH 17.3 % (11.6-14.6)
[2021-10-13 07:16] LABS: CHLORIDE 105 mEq/L (98-107)
[2021-10-13 07:20] LABS: PHOSPHORUS 4.3 mg/dL (2.5-4.9)
[2021-10-13] MEDS: DEXT 5%/0.45% NACL 1000ML 1,000 ML IV SCH (08:00)
[2021-10-13] MEDS: PREDNISONE 20MG TABLET PO SCH (08:50)
[2021-10-13] MEDS: MIDODRINE HCL 5MG TABLET PO SCH ×3 (08:50→17:15)
[2021-10-13] MEDS: ASCORBIC ACID 500 MG TABLET PO SCH (08:50)
[2021-10-13] MEDS: POLYVINYL ALCOHOL OPHTH DROPS 15ML BOTHEYE SCH ×3 (08:50→17:14)
[2021-10-13] MEDS: RIFAXIMIN 550 MG TABLET PO SCH ×2 (08:50→20:57)
[2021-10-13] MEDS: ZINC SULFATE 220 MG ( 50 ) CAPSULE PO SCH (08:50)
[2021-10-13] MEDS: DEXT 5%/0.9% NACL 1,000 ML IV SCH (09:21)
[2021-10-13 18:04] LABS: PLATELET ESTIMATE NORMAL
[2021-10-14] VITALS (12 sets, daily range): BP systolic 96–135; BP diastolic 40–86
[2021-10-14] MEDS: DILTIAZEM HCL 30MG TABLET PO SCH ×4 (05:27→23:20)
[2021-10-14] MEDS: METOCLOPRAMIDE HCL 10MG/2ML VIAL IV SCH ×4 (05:28→23:20)
[2021-10-14] MEDS: LACTULOSE 20G/30ML UDC PO SCH ×3 (05:28→21:10)
[2021-10-14] MEDS: DEXT 5%/0.9% NACL 1,000 ML IV SCH (05:29)
[2021-10-14 07:38] LABS: HEMATOCRIT. 26.2 % (42.0-52.0); HEMOGLOBIN. 8.2 g/dL (14.0-18.0); MEAN CORPUSCULAR HEMOGLOBIN 26.5 pg (28.0-32.0); MEAN CORPUSCULAR VOLUME 84.6 fL (80.0-94.0); MEAN PLATELET VOLUME 11.1 fl (7.4-10.4); PLATELET 149 x1000/uL (130-400); RED CELL DISTRIBUTION WIDTH 17.8 % (11.6-14.6)
[2021-10-14 08:12] LABS: CHLORIDE 107 mEq/L (98-107)
[2021-10-14 08:18] LABS: PHOSPHORUS 4.1 mg/dL (2.5-4.9)
[2021-10-14] MEDS: RIFAXIMIN 550 MG TABLET PO SCH ×2 (08:53→21:10)
[2021-10-14] MEDS: ZINC SULFATE 220 MG ( 50 ) CAPSULE PO SCH (08:53)
[2021-10-14] MEDS: ASCORBIC ACID 500 MG TABLET PO SCH (08:54)
[2021-10-14] MEDS: MIDODRINE HCL 5MG TABLET PO SCH ×3 (08:55→17:42)
[2021-10-14] MEDS: PREDNISONE 20MG TABLET PO SCH (08:56)
[2021-10-14] MEDS: POLYVINYL ALCOHOL OPHTH DROPS 15ML BOTHEYE SCH ×3 (09:18→17:42)
[2021-10-14] MEDS: MORPHINE SULFATE 2 MG/ML CPJ (NOT FOR IM USE) IV PRN (10:04)
[2021-10-14 13:57] LABS: BG BASE EXCESS -7.4 mmol/L (-2.0-2.0); BG CARBOXYHEMOGLOBIN 0.3 % (0.5-1.5); BG DEOXYHEMOGLOBIN 1.2 % (0.0-5.0); BG FRACTION INSPIRED OXYGEN 100; BG HCO3 ACT 18.7 mmol/L (22.0-26.0); BG METHEMOGLOBIN 0.8 % (0.0-1.5); BG OXYGEN SATURATION 98.8 % (92.0-98.5); BG OXYHEMOGLOBIN 97.7 % (94.0-97.0); BG PCO2 39.8 mmHg (35.0-45.0); BG PH 7.289 (7.350-7.450); BG PO2 198.6 mmHg (75.0-100.0); BG SAMPLE SITE RIGHT RADIAL; BG VENT MODE VENT - AC
[2021-10-14 14:26] LABS: PLATELET ESTIMATE NORMAL
[2021-10-15] VITALS (12 sets, daily range): BP systolic 101–124; BP diastolic 23–73
[2021-10-15] MEDS: DEXT 5%/0.9% NACL 1,000 ML IV SCH (01:15)
[2021-10-15] MEDS: LACTULOSE 20G/30ML UDC PO SCH ×3 (05:21→21:30)
[2021-10-15] MEDS: DILTIAZEM HCL 30MG TABLET PO SCH ×3 (05:21→17:15)
[2021-10-15] MEDS: METOCLOPRAMIDE HCL 10MG/2ML VIAL IV SCH ×3 (05:21→17:14)
[2021-10-15 05:39] LABS: CHLORIDE 107 mEq/L (98-107)
[2021-10-15 05:47] LABS: PHOSPHORUS 4.4 mg/dL (2.5-4.9)
[2021-10-15 06:26] LABS: HEMATOCRIT. 25.7 % (42.0-52.0); MEAN CORPUSCULAR HEMOGLOBIN 26.5 pg (28.0-32.0); MEAN CORPUSCULAR VOLUME 85.2 fL (80.0-94.0); MEAN PLATELET VOLUME 10.8 fl (7.4-10.4); PLATELET 144 x1000/uL (130-400); RED BLOOD CELL COUNT 3.02 mill/uL (4.7-6.1); RED CELL DISTRIBUTION WIDTH 18.5 % (11.6-14.6)
[2021-10-15] MEDS: POLYVINYL ALCOHOL OPHTH DROPS 15ML BOTHEYE SCH ×3 (08:58→17:15)
[2021-10-15] MEDS: RIFAXIMIN 550 MG TABLET PO SCH ×2 (08:59→21:30)
[2021-10-15] MEDS: ZINC SULFATE 220 MG ( 50 ) CAPSULE PO SCH (08:59)
[2021-10-15] MEDS: MIDODRINE HCL 5MG TABLET PO SCH ×3 (08:59→17:15)
[2021-10-15] MEDS: PREDNISONE 20MG TABLET PO SCH (08:59)
[2021-10-15] MEDS: ASCORBIC ACID 500 MG TABLET PO SCH (08:59)
[2021-10-15] MEDS: SODIUM BICARBONATE 150 MEQ in DEXTROSE 5% WATER 1000 ML IV SCH (10:00)
[2021-10-15 17:39] LABS: PLATELET ESTIMATE NORMAL
[2021-10-15] MEDS: MORPHINE SULFATE 2 MG/ML CPJ (NOT FOR IM USE) IV PRN (17:58)
[2021-10-16] VITALS (12 sets, daily range): BP systolic 93–127; BP diastolic 51–78
[2021-10-16] MEDS: DILTIAZEM HCL 30MG TABLET PO SCH ×4 (00:13→18:09)
[2021-10-16] MEDS: METOCLOPRAMIDE HCL 10MG/2ML VIAL IV SCH ×4 (00:13→18:09)
[2021-10-16] MEDS: SODIUM BICARBONATE 150 MEQ in DEXTROSE 5% WATER 1000 ML IV SCH ×2 (05:00→20:00)
[2021-10-16] MEDS: LACTULOSE 20G/30ML UDC PO SCH ×3 (05:25→21:20)
[2021-10-16 06:31] LABS: CHLORIDE 106 mEq/L (98-107)
[2021-10-16 06:33] LABS: HEMATOCRIT. 23.4 % (42.0-52.0); HEMOGLOBIN. 7.5 g/dL (14.0-18.0); MEAN CORPUSCULAR HEMOGLOBIN 26.9 pg (28.0-32.0); MEAN CORPUSCULAR VOLUME 84.1 fL (80.0-94.0); MEAN PLATELET VOLUME 10.5 fl (7.4-10.4); PLATELET 126 x1000/uL (130-400); RED BLOOD CELL COUNT 2.79 mill/uL (4.7-6.1); RED CELL DISTRIBUTION WIDTH 18.9 % (11.6-14.6)
[2021-10-16 06:41] LABS: PHOSPHORUS 4.4 mg/dL (2.5-4.9)
[2021-10-16] MEDS: ASCORBIC ACID 500 MG TABLET PO SCH (08:39)
[2021-10-16] MEDS: ZINC SULFATE 220 MG ( 50 ) CAPSULE PO SCH (08:39)
[2021-10-16] MEDS: PREDNISONE 20MG TABLET PO SCH (08:39)
[2021-10-16] MEDS: MIDODRINE HCL 5MG TABLET PO SCH ×3 (08:40→18:09)
[2021-10-16] MEDS: POLYVINYL ALCOHOL OPHTH DROPS 15ML BOTHEYE SCH ×3 (08:41→18:10)
[2021-10-16] MEDS: IPRATROPIUM/ALBUTEROL 0.5-3(2.5)MG/3ML NEB HHN PRN (08:47)
[2021-10-16 12:10] LABS: BG BASE EXCESS -7.9 mmol/L (-2.0-2.0); BG CARBOXYHEMOGLOBIN 0.3 % (0.5-1.5); BG DEOXYHEMOGLOBIN 0.9 % (0.0-5.0); BG FRACTION INSPIRED OXYGEN 80; BG HCO3 ACT 17.6 mmol/L (22.0-26.0); BG METHEMOGLOBIN 0.7 % (0.0-1.5); BG OXYGEN SATURATION 99.1 % (92.0-98.5); BG OXYHEMOGLOBIN 98.1 % (94.0-97.0); BG PCO2 35.8 mmHg (35.0-45.0); BG PO2 220.9 mmHg (75.0-100.0); BG SAMPLE SITE RIGHT RADIAL; BG TOTAL HEMOGLOBIN 8.5 g/dL (12.0-18.0); BG VENT MODE VENT - AC
[2021-10-16 16:49] LABS: PLATELET ESTIMATE DECREASED
[2021-10-17] VITALS (12 sets, daily range): BP systolic 92–104; BP diastolic 48–63
[2021-10-17] MEDS: METOCLOPRAMIDE HCL 10MG/2ML VIAL IV SCH ×5 (00:12→23:52)
[2021-10-17] MEDS: DILTIAZEM HCL 30MG TABLET PO SCH ×5 (00:13→23:53)
[2021-10-17] MEDS: SODIUM BICARBONATE 150 MEQ in DEXTROSE 5% WATER 1000 ML IV SCH (01:00)
[2021-10-17] MEDS: LACTULOSE 20G/30ML UDC PO SCH (05:07)
[2021-10-17 06:28] LABS: HEMATOCRIT. 23.6 % (42.0-52.0); HEMOGLOBIN. 7.5 g/dL (14.0-18.0); MEAN CORPUSCULAR HEMOGLOBIN 27.2 pg (28.0-32.0); MEAN CORPUSCULAR VOLUME 85.6 fL (80.0-94.0); MEAN PLATELET VOLUME 10.2 fl (7.4-10.4); PLATELET 136 x1000/uL (130-400); RED BLOOD CELL COUNT 2.76 mill/uL (4.7-6.1); RED CELL DISTRIBUTION WIDTH 19.5 % (11.6-14.6)
[2021-10-17 07:45] LABS: CHLORIDE 106 mEq/L (98-107)
[2021-10-17 07:50] LABS: PHOSPHORUS 4.3 mg/dL (2.5-4.9)
[2021-10-17] MEDS: PREDNISONE 20MG TABLET PO SCH (09:00)
[2021-10-17] MEDS: POLYVINYL ALCOHOL OPHTH DROPS 15ML BOTHEYE SCH ×3 (09:09→18:22)
[2021-10-17] MEDS: ASCORBIC ACID 500 MG TABLET PO SCH (09:09)
[2021-10-17] MEDS: ZINC SULFATE 220 MG ( 50 ) CAPSULE PO SCH (09:11)
[2021-10-17] MEDS: MIDODRINE HCL 5MG TABLET PO SCH ×3 (09:11→18:24)
[2021-10-17 13:11] LABS: PLATELET ESTIMATE NORMAL
[2021-10-18] VITALS (11 sets, daily range): BP systolic 90–117; BP diastolic 47–73
[2021-10-18] MEDS: DILTIAZEM HCL 30MG TABLET PO SCH ×3 (06:00→18:09)
[2021-10-18 06:09] LABS: HEMATOCRIT. 25.9 % (42.0-52.0); HEMOGLOBIN. 8.1 g/dL (14.0-18.0); MEAN CORPUSCULAR HEMOGLOBIN 26.7 pg (28.0-32.0); MEAN CORPUSCULAR VOLUME 85.9 fL (80.0-94.0); MEAN PLATELET VOLUME 10.2 fl (7.4-10.4); PLATELET 133 x1000/uL (130-400); RED BLOOD CELL COUNT 3.02 mill/uL (4.7-6.1)
[2021-10-18 06:13] LABS: PHOSPHORUS 4.7 mg/dL (2.5-4.9)
[2021-10-18] MEDS: METOCLOPRAMIDE HCL 10MG/2ML VIAL IV SCH ×3 (06:21→18:09)
[2021-10-18] MEDS: POLYVINYL ALCOHOL OPHTH DROPS 15ML BOTHEYE SCH ×3 (10:06→18:09)
[2021-10-18] MEDS: PREDNISONE 20MG TABLET PO SCH (10:06)
[2021-10-18] MEDS: ASCORBIC ACID 500 MG TABLET PO SCH (10:07)
[2021-10-18] MEDS: ZINC SULFATE 220 MG ( 50 ) CAPSULE PO SCH (10:07)
[2021-10-18] MEDS: MIDODRINE HCL 5MG TABLET PO SCH ×3 (10:08→18:08)
[2021-10-18 12:30] LABS: BG BASE EXCESS -6.1 mmol/L (-2.0-2.0); BG CARBOXYHEMOGLOBIN 0.2 % (0.5-1.5); BG DEOXYHEMOGLOBIN 2.2 % (0.0-5.0); BG FRACTION INSPIRED OXYGEN 60; BG HCO3 ACT 18.7 mmol/L (22.0-26.0); BG METHEMOGLOBIN 0.4 % (0.0-1.5); BG OXYGEN SATURATION 97.8 % (92.0-98.5); BG OXYHEMOGLOBIN 97.2 % (94.0-97.0); BG PH 7.358 (7.350-7.450); BG SAMPLE SITE RIGHT RADIAL; BG TOTAL HEMOGLOBIN 8.2 g/dL (12.0-18.0); BG VENT MODE VENT - AC
[2021-10-19] VITALS (12 sets, daily range): BP systolic 90–119; BP diastolic 51–75
[2021-10-19] MEDS: METOCLOPRAMIDE HCL 10MG/2ML VIAL IV SCH ×4 (00:09→17:42)
[2021-10-19] MEDS: DILTIAZEM HCL 30MG TABLET PO SCH ×4 (00:11→17:43)
[2021-10-19 02:03] LABS: PLATELET ESTIMATE NORMAL
[2021-10-19 06:54] LABS: HEMATOCRIT. 24.3 % (42.0-52.0); HEMOGLOBIN. 7.3 g/dL (14.0-18.0); MEAN CORPUSCULAR VOLUME 86.5 fL (80.0-94.0); MEAN PLATELET VOLUME 10.8 fl (7.4-10.4); PLATELET 163 x1000/uL (130-400); RED BLOOD CELL COUNT 2.81 mill/uL (4.7-6.1); RED CELL DISTRIBUTION WIDTH 19.3 % (11.6-14.6)
[2021-10-19 07:15] LABS: PHOSPHORUS 4.9 mg/dL (2.5-4.9)
[2021-10-19 08:38] LABS: BG BASE EXCESS -8.2 mmol/L (-2.0-2.0); BG CARBOXYHEMOGLOBIN 0.3 % (0.5-1.5); BG DEOXYHEMOGLOBIN 7.3 % (0.0-5.0); BG METHEMOGLOBIN 0.6 % (0.0-1.5); BG OXYGEN SATURATION 92.6 % (92.0-98.5); BG OXYHEMOGLOBIN 91.8 % (94.0-97.0); BG PCO2 32.9 mmHg (35.0-45.0); BG PO2 71.4 mmHg (75.0-100.0); BG SAMPLE SITE LEFT RADIAL; BG TOTAL HEMOGLOBIN 7.7 g/dL (12.0-18.0); BG VENT MODE VENT - AC
[2021-10-19] MEDS: LACTULOSE 20G/30ML UDC PO SCH ×2 (10:09→17:41)
[2021-10-19] MEDS: PREDNISONE 20MG TABLET PO SCH (10:09)
[2021-10-19] MEDS: MIDODRINE HCL 5MG TABLET PO SCH ×3 (10:10→17:42)
[2021-10-19] MEDS: ZINC SULFATE 220 MG ( 50 ) CAPSULE PO SCH (10:10)
[2021-10-19] MEDS: ASCORBIC ACID 500 MG TABLET PO SCH (10:10)
[2021-10-19] MEDS: POLYVINYL ALCOHOL OPHTH DROPS 15ML BOTHEYE SCH ×3 (10:11→17:43)
[2021-10-19] MEDS ORDERED: ALBUMIN HUMAN 25GM/100ML (25%) IV NR (12:30)
[2021-10-19 14:52] LABS: PLATELET ESTIMATE NORMAL
[2021-10-19] MEDS: SODIUM CHLORIDE 0.9% 1,000 ML IV SCH (17:41)
[2021-10-20] VITALS (15 sets, daily range): BP systolic 88–123; BP diastolic 42–73
[2021-10-20] MEDS: METOCLOPRAMIDE HCL 10MG/2ML VIAL IV SCH ×5 (00:49→23:25)
[2021-10-20] MEDS: DILTIAZEM HCL 30MG TABLET PO SCH ×5 (05:48→23:26)
[2021-10-20 06:47] LABS: HEMATOCRIT. 22.3 % (42.0-52.0); MEAN CORPUSCULAR HEMOGLOBIN 26.6 pg (28.0-32.0); MEAN CORPUSCULAR VOLUME 85.5 fL (80.0-94.0); MEAN PLATELET VOLUME 10.7 fl (7.4-10.4); PLATELET 159 x1000/uL (130-400); RED BLOOD CELL COUNT 2.61 mill/uL (4.7-6.1)
[2021-10-20 07:00] LABS: HEMOGLOBIN. 6.9 g/dL (14.0-18.0)
[2021-10-20] MEDS: LACTULOSE 20G/30ML UDC PO SCH ×2 (09:17→17:31)
[2021-10-20] MEDS: POLYVINYL ALCOHOL OPHTH DROPS 15ML BOTHEYE SCH ×3 (09:17→16:08)
[2021-10-20] MEDS: PREDNISONE 20MG TABLET PO SCH (09:18)
[2021-10-20] MEDS: MIDODRINE HCL 5MG TABLET PO SCH ×3 (09:18→17:32)
[2021-10-20] MEDS: ASCORBIC ACID 500 MG TABLET PO SCH (09:18)
[2021-10-20] MEDS: ZINC SULFATE 220 MG ( 50 ) CAPSULE PO SCH (09:18)
[2021-10-20] MEDS: SODIUM CHLORIDE 0.9% 1,000 ML IV SCH (09:19)
[2021-10-20] MEDS ORDERED: MORPHINE SULFATE 2 MG/ML CPJ (NOT FOR IM USE) IV PRN (15:00)
[2021-10-20] MEDS ORDERED: NALOXONE HCL 0.4MG/ML VIAL IV PRN (15:15)
[2021-10-20] MEDS: MEROPENEM 1,000 MG in SODIUM CHLORIDE 0.9% 100 ML IV SCH (17:56)
[2021-10-20 19:10] LABS: HEMATOCRIT 24.1 % (42.0-52.0); HEMOGLOBIN 7.6 g/dL (14.0-18.0)
[2021-10-20 19:18] LABS: INR 1.1; PROTHROMBIN TIME 11.5 sec (9.6-11.0)
[2021-10-20] MEDS: POLYVINYL ALCOHOL OPHTH DROPS 15ML BOTHEYE PRN (23:27)
[2021-10-21] VITALS (12 sets, daily range): BP systolic 90–109; BP diastolic 12–66
[2021-10-21] MEDS: MEROPENEM 1,000 MG in SODIUM CHLORIDE 0.9% 100 ML IV SCH ×3 (02:18→17:42)
[2021-10-21] MEDS: DILTIAZEM HCL 30MG TABLET PO SCH ×3 (05:03→17:43)
[2021-10-21] MEDS: METOCLOPRAMIDE HCL 10MG/2ML VIAL IV SCH ×3 (05:04→17:44)
[2021-10-21] MEDS: SODIUM CHLORIDE 0.9% 1,000 ML IV SCH (07:15)
[2021-10-21 08:16] LABS: PLATELET ESTIMATE NORMAL
[2021-10-21 08:21] LABS: CHLORIDE 103 mEq/L (98-107)
[2021-10-21 08:34] LABS: PHOSPHORUS 5.1 mg/dL (2.5-4.9)
[2021-10-21] MEDS: LACTULOSE 20G/30ML UDC PO SCH ×2 (08:48→17:44)
[2021-10-21] MEDS: ZINC SULFATE 220 MG ( 50 ) CAPSULE PO SCH (08:49)
[2021-10-21] MEDS: PREDNISONE 20MG TABLET PO SCH (08:49)
[2021-10-21] MEDS: MIDODRINE HCL 5MG TABLET PO SCH ×3 (08:49→17:44)
[2021-10-21] MEDS: ASCORBIC ACID 500 MG TABLET PO SCH (08:49)
[2021-10-21] MEDS: POLYVINYL ALCOHOL OPHTH DROPS 15ML BOTHEYE SCH ×3 (08:50→17:44)
[2021-10-21 08:55] LABS: HEMATOCRIT. 25.4 % (42.0-52.0); HEMOGLOBIN. 7.9 g/dL (14.0-18.0); MEAN CORPUSCULAR HEMOGLOBIN 26.2 pg (28.0-32.0); MEAN CORPUSCULAR VOLUME 84.5 fL (80.0-94.0); MEAN PLATELET VOLUME 10.4 fl (7.4-10.4); PLATELET 146 x1000/uL (130-400); RED CELL DISTRIBUTION WIDTH 20.6 % (11.6-14.6)
[2021-10-21] MEDS ORDERED: SODIUM POLYSTYRENE SULFONATE 15 G/60 ML BOT PO NR (12:00)
[2021-10-21 12:12] LABS: BG BASE EXCESS -9.8 mmol/L (-2.0-2.0); BG CARBOXYHEMOGLOBIN 0.1 % (0.5-1.5); BG DEOXYHEMOGLOBIN 7.6 % (0.0-5.0); BG FRACTION INSPIRED OXYGEN 40; BG HCO3 ACT 15.5 mmol/L (22.0-26.0); BG METHEMOGLOBIN 0.3 % (0.0-1.5); BG OXYGEN SATURATION 92.4 % (92.0-98.5); BG PH 7.304 (7.350-7.450); BG PO2 71.3 mmHg (75.0-100.0); BG SAMPLE SITE LEFT RADIAL; BG TOTAL HEMOGLOBIN 8.3 g/dL (12.0-18.0); BG VENT MODE VENT - AC
[2021-10-22] VITALS (12 sets, daily range): BP systolic 89–114; BP diastolic 48–74
[2021-10-22] MEDS: DILTIAZEM HCL 30MG TABLET PO SCH ×4 (00:37→18:05)
[2021-10-22] MEDS: METOCLOPRAMIDE HCL 10MG/2ML VIAL IV SCH ×4 (00:37→18:06)
[2021-10-22] MEDS: MEROPENEM 1,000 MG in SODIUM CHLORIDE 0.9% 100 ML IV SCH ×3 (01:31→18:05)
[2021-10-22] MEDS: SODIUM CHLORIDE 0.9% 1,000 ML IV SCH (05:16)
[2021-10-22] MEDS: GUAIFENESIN-DM 200MG-20MG/10ML UDC PO PRN (05:16)
[2021-10-22 05:25] LABS: PHOSPHORUS 5.3 mg/dL (2.5-4.9)
[2021-10-22 06:31] LABS: HEMATOCRIT. 24.6 % (42.0-52.0); HEMOGLOBIN. 7.8 g/dL (14.0-18.0); MEAN CORPUSCULAR HEMOGLOBIN 26.9 pg (28.0-32.0); MEAN CORPUSCULAR VOLUME 84.4 fL (80.0-94.0); MEAN PLATELET VOLUME 10.3 fl (7.4-10.4); PLATELET 150 x1000/uL (130-400); RED BLOOD CELL COUNT 2.92 mill/uL (4.7-6.1); RED CELL DISTRIBUTION WIDTH 19.8 % (11.6-14.6)
[2021-10-22] MEDS ORDERED: SODIUM POLYSTYRENE SULFONATE 15 G/60 ML BOT PO SCH (08:00)
[2021-10-22] MEDS: ZINC SULFATE 220 MG ( 50 ) CAPSULE PO SCH (09:22)
[2021-10-22] MEDS: LACTULOSE 20G/30ML UDC PO SCH ×2 (09:22→18:05)
[2021-10-22] MEDS: ASCORBIC ACID 500 MG TABLET PO SCH (09:22)
[2021-10-22] MEDS: PREDNISONE 20MG TABLET PO SCH (09:22)
[2021-10-22] MEDS: MIDODRINE HCL 5MG TABLET PO SCH ×3 (09:24→18:06)
[2021-10-22] MEDS: POLYVINYL ALCOHOL OPHTH DROPS 15ML BOTHEYE SCH ×3 (09:24→18:06)
[2021-10-22] MEDS ORDERED: LIDOCAINE HCL 1% 20ML VIAL (Pyxis) INJ ONE (09:43)
[2021-10-22] MEDS ORDERED: CEFTRIAXONE 1,000 MG in DEXTROSE 5% WATER 50 ML IV SCH (15:00)
[2021-10-22 15:17] LABS: PLATELET ESTIMATE NORMAL
[2021-10-22 15:35] LABS: BG BASE EXCESS -10.5 mmol/L (-2.0-2.0); BG CARBOXYHEMOGLOBIN 0.3 % (0.5-1.5); BG DEOXYHEMOGLOBIN 3.4 % (0.0-5.0); BG FRACTION INSPIRED OXYGEN 70; BG HCO3 ACT 15.5 mmol/L (22.0-26.0); BG METHEMOGLOBIN 0.4 % (0.0-1.5); BG OXYGEN SATURATION 96.6 % (92.0-98.5); BG OXYHEMOGLOBIN 95.9 % (94.0-97.0); BG PCO2 34.7 mmHg (35.0-45.0); BG PH 7.267 (7.350-7.450); BG PO2 99.9 mmHg (75.0-100.0); BG SAMPLE SITE LEFT RADIAL; BG TOTAL HEMOGLOBIN 8.4 g/dL (12.0-18.0); BG VENT MODE VENT - AC
[2021-10-22] MEDS ORDERED: SODIUM BICARBONATE 8.4% 1 MEQ/ML 50ML SYR IV NR (18:00)
[2021-10-22] MEDS: METRONIDAZOLE 500MG TABLET PO SCH (20:48)
[2021-10-23] VITALS (12 sets, daily range): BP systolic 89–111; BP diastolic 48–74
[2021-10-23] MEDS: SODIUM CHLORIDE 0.9% 1,000 ML IV SCH ×2 (00:02→18:10)
[2021-10-23] MEDS: METOCLOPRAMIDE HCL 10MG/2ML VIAL IV SCH ×5 (00:10→23:39)
[2021-10-23] MEDS: DILTIAZEM HCL 30MG TABLET PO SCH ×5 (00:16→23:41)
[2021-10-23 05:38] LABS: PHOSPHORUS 5.1 mg/dL (2.5-4.9)
[2021-10-23 06:12] LABS: HEMATOCRIT. 24.9 % (42.0-52.0); MEAN CORPUSCULAR VOLUME 84.1 fL (80.0-94.0); MEAN PLATELET VOLUME 10.6 fl (7.4-10.4); PLATELET 144 x1000/uL (130-400); RED BLOOD CELL COUNT 2.96 mill/uL (4.7-6.1); RED CELL DISTRIBUTION WIDTH 19.9 % (11.6-14.6)
[2021-10-23 06:47] LABS: PLATELET ESTIMATE NORMAL
[2021-10-23] MEDS: METRONIDAZOLE 500MG TABLET PO SCH ×2 (09:19→20:59)
[2021-10-23] MEDS: PREDNISONE 20MG TABLET PO SCH (09:19)
[2021-10-23] MEDS: ZINC SULFATE 220 MG ( 50 ) CAPSULE PO SCH (09:19)
[2021-10-23] MEDS: MIDODRINE HCL 5MG TABLET PO SCH ×3 (09:19→18:09)
[2021-10-23] MEDS: ASCORBIC ACID 500 MG TABLET PO SCH (09:19)
[2021-10-23] MEDS: LACTULOSE 20G/30ML UDC PO SCH ×2 (09:19→18:08)
[2021-10-23] MEDS: POLYVINYL ALCOHOL OPHTH DROPS 15ML BOTHEYE SCH ×3 (09:20→18:08)
[2021-10-23] MEDS: CEFTRIAXONE 1,000 MG in DEXTROSE 5% WATER 50 ML IV SCH (12:45)
[2021-10-23 16:28] LABS: BG BASE EXCESS -9.8 mmol/L (-2.0-2.0); BG CARBOXYHEMOGLOBIN 0.3 % (0.5-1.5); BG DEOXYHEMOGLOBIN 5.6 % (0.0-5.0); BG FRACTION INSPIRED OXYGEN 70; BG HCO3 ACT 16.6 mmol/L (22.0-26.0); BG METHEMOGLOBIN 0.6 % (0.0-1.5); BG OXYGEN SATURATION 94.3 % (92.0-98.5); BG OXYHEMOGLOBIN 93.5 % (94.0-97.0); BG PCO2 38.6 mmHg (35.0-45.0); BG PH 7.252 (7.350-7.450); BG PO2 83.1 mmHg (75.0-100.0); BG SAMPLE SITE RIGHT RADIAL; BG TOTAL HEMOGLOBIN 8.9 g/dL (12.0-18.0); BG VENT MODE VENT - AC
[2021-10-23 16:30] LABS: PLATELET ESTIMATE NORMAL
[2021-10-24] VITALS (12 sets, daily range): BP systolic 92–116; BP diastolic 50–74
[2021-10-24] MEDS: DILTIAZEM HCL 30MG TABLET PO SCH ×3 (05:22→17:45)
[2021-10-24] MEDS: METOCLOPRAMIDE HCL 10MG/2ML VIAL IV SCH ×3 (05:23→17:45)
[2021-10-24 06:55] LABS: PHOSPHORUS 5.5 mg/dL (2.5-4.9)
[2021-10-24 07:20] LABS: HEMATOCRIT. 23.3 % (42.0-52.0); HEMOGLOBIN. 7.6 g/dL (14.0-18.0); MEAN CORPUSCULAR HEMOGLOBIN 27.5 pg (28.0-32.0); MEAN CORPUSCULAR VOLUME 84.6 fL (80.0-94.0); MEAN PLATELET VOLUME 10.9 fl (7.4-10.4); PLATELET 141 x1000/uL (130-400); RED BLOOD CELL COUNT 2.76 mill/uL (4.7-6.1); RED CELL DISTRIBUTION WIDTH 19.8 % (11.6-14.6)
[2021-10-24] MEDS: MIDODRINE HCL 5MG TABLET PO SCH ×4 (09:00→17:00)
[2021-10-24] MEDS: LACTULOSE 20G/30ML UDC PO SCH ×2 (09:21→17:45)
[2021-10-24] MEDS: ASCORBIC ACID 500 MG TABLET PO SCH (09:21)
[2021-10-24] MEDS: ZINC SULFATE 220 MG ( 50 ) CAPSULE PO SCH (09:21)
[2021-10-24] MEDS: PREDNISONE 20MG TABLET PO SCH (09:21)
[2021-10-24] MEDS: METRONIDAZOLE 500MG TABLET PO SCH ×2 (09:22→20:22)
[2021-10-24] MEDS: POLYVINYL ALCOHOL OPHTH DROPS 15ML BOTHEYE SCH ×3 (09:23→17:46)
[2021-10-24] MEDS: CEFTRIAXONE 1,000 MG in DEXTROSE 5% WATER 50 ML IV SCH (13:03)
[2021-10-25] VITALS (8 sets, daily range): BP systolic 65–105; BP diastolic 35–65
[2021-10-25 00:28] LABS: PLATELET ESTIMATE NORMAL
[2021-10-25] MEDS: METOCLOPRAMIDE HCL 10MG/2ML VIAL IV SCH ×3 (01:10→11:06)
[2021-10-25] MEDS: DILTIAZEM HCL 30MG TABLET PO SCH ×3 (06:00→11:04)
[2021-10-25] MEDS: LACTULOSE 20G/30ML UDC PO SCH (08:23)
[2021-10-25] MEDS: POLYVINYL ALCOHOL OPHTH DROPS 15ML BOTHEYE SCH ×2 (08:23→12:09)
[2021-10-25] MEDS: METRONIDAZOLE 500MG TABLET PO SCH (08:24)
[2021-10-25] MEDS: ZINC SULFATE 220 MG ( 50 ) CAPSULE PO SCH (08:24)
[2021-10-25] MEDS: ASCORBIC ACID 500 MG TABLET PO SCH (08:24)
[2021-10-25] MEDS: PREDNISONE 20MG TABLET PO SCH (08:24)
[2021-10-25] MEDS: MIDODRINE HCL 5MG TABLET PO SCH ×3 (08:24→12:09)
[2021-10-25 08:43] LABS: HEMATOCRIT. 23.6 % (42.0-52.0); HEMOGLOBIN. 7.2 g/dL (14.0-18.0); MEAN CORPUSCULAR VOLUME 88.8 fL (80.0-94.0); MEAN PLATELET VOLUME 10.8 fl (7.4-10.4); PLATELET 159 x1000/uL (130-400); RED BLOOD CELL COUNT 2.66 mill/uL (4.7-6.1); RED CELL DISTRIBUTION WIDTH 21.3 % (11.6-14.6)
[2021-10-25 08:57] LABS: PHOSPHORUS 6.1 mg/dL (2.5-4.9)
[2021-10-25] MEDS ORDERED: SODIUM POLYSTYRENE SULFONATE 15 G/60 ML BOT PO NR (09:00)
[2021-10-25] MEDS ORDERED: MIDODRINE HCL 5MG TABLET PO ONE (10:30)
[2021-10-25] MEDS: CEFTRIAXONE 1,000 MG in DEXTROSE 5% WATER 50 ML IV SCH (12:08)
[2021-10-25] MEDS ORDERED: ALBUMIN HUMAN 25GM/100ML (25%) IV NR (12:30)
[2021-10-25 12:41] LABS: NUCLEATED RED BLOOD CELLS 2 /100 WBC; PLATELET ESTIMATE NORMAL
[2021-10-25] MEDS ORDERED: DOPAMINE 800MG PREMIX (DOUBLE) 250 ML IV PRN (13:30)
[2021-10-25] MEDS ORDERED: MORPHINE SULFATE 250 MG in DEXT 5% WATER 225 ML IV PRN (13:45)
[2021-10-25 14:52] LABS: BG BASE EXCESS -20.3 mmol/L (-2.0-2.0); BG CARBOXYHEMOGLOBIN 0.2 % (0.5-1.5); BG DEOXYHEMOGLOBIN 14.2 % (0.0-5.0); BG FRACTION INSPIRED OXYGEN 55; BG HCO3 ACT 9.3 mmol/L (22.0-26.0); BG METHEMOGLOBIN 0.3 % (0.0-1.5); BG OXYGEN SATURATION 85.7 % (92.0-98.5); BG OXYHEMOGLOBIN 85.3 % (94.0-97.0); BG PCO2 38.3 mmHg (35.0-45.0); BG PH 7.005 (7.350-7.450); BG PO2 69.3 mmHg (75.0-100.0); BG SAMPLE SITE RIGHT RADIAL; BG TOTAL HEMOGLOBIN 7.1 g/dL (12.0-18.0); BG TOTAL RESPIRATORY RATE 33 b/min; BG VENT MODE VENT - AC
[2021-10-25] MEDS ORDERED: SODIUM BICARBONATE 8.4% 1 MEQ/ML 50ML SYR IV NR (15:00)
[2021-10-30] MEDS ORDERED: DOPAMINE 800MG PREMIX (DOUBLE) 250 ML IV PRN (13:30)
== END 2021-10-25 18:16 | DRG 5 ==
LOC: ER 08:18 → EDBEDREQ 12:58 → ENRESERV 14:51 → EDBD 19:33 → 8WST 19:33 → 5EST 09-04 13:24 → MICUSO 09-25 21:55 → CVICU 10-07 17:00 → 5EST 10-12 18:36
PROVIDERS: ADMIT Psychiatry & Neurology Neurology; ATTEND Internal Medicine
PROC: 05HY33Z Insertion of Infusion Device into Upper Vein, Percutaneous Approach (ICD-10-PCS; 2021-08-22)
PROC: B54NZZA Ultrasonography of Left Upper Extremity Veins, Guidance (ICD-10-PCS; 2021-08-22)
PROC: 0DH63UZ Insertion of Feeding Device into Stomach, Percutaneous Approach (ICD-10-PCS; 2021-09-04)
PROC: 02HV33Z Insertion of Infusion Device into Superior Vena Cava, Percutaneous Approach (ICD-10-PCS; 2021-09-21)
PROC: B548ZZA Ultrasonography of Superior Vena Cava, Guidance (ICD-10-PCS; 2021-09-21)
PROC: 5A1955Z Respiratory Ventilation, Greater than 96 Consecutive Hours (ICD-10-PCS; principal; 2021-09-25)
PROC: 0BH17EZ Insertion of Endotracheal Airway into Trachea, Via Natural or Artificial Opening (ICD-10-PCS; 2021-09-25)
PROC: 5A09357 Assistance with Respiratory Ventilation, Less than 24 Consecutive Hours, Continuous Positive Airway Pressure (ICD-10-PCS; 2021-09-25)
PROC: 0W993ZZ Drainage of Right Pleural Cavity, Percutaneous Approach (ICD-10-PCS; 2021-09-26)
PROC: 0B110F4 Bypass Trachea to Cutaneous with Tracheostomy Device, Open Approach (ICD-10-PCS; 2021-10-10)
DX: A41.89 Other specified sepsis (principal); K72.00 Acute and subacute hepatic failure without coma; N17.0 Acute kidney failure with tubular necrosis; R65.21 Severe sepsis with septic shock; G92.8 Other toxic encephalopathy; E43 Unspecified severe protein-calorie malnutrition; J15.6 Pneumonia due to other Gram-negative bacteria; C34.11 Malignant neoplasm of upper lobe, right bronchus or lung; J98.11 Atelectasis; J96.01 Acute respiratory failure with hypoxia; J96.02 Acute respiratory failure with hypercapnia; Z66 Do not resuscitate; Z20.822 Contact with and (suspected) exposure to COVID-19; R65.20 Severe sepsis without septic shock; L89.93 Pressure ulcer of unspecified site, stage 3; I21.4 Non-ST elevation (NSTEMI) myocardial infarction; J90 Pleural effusion, not elsewhere classified; E87.4 Mixed disorder of acid-base balance; E87.0 Hyperosmolality and hypernatremia; E83.39 Other disorders of phosphorus metabolism; D62 Acute posthemorrhagic anemia; E86.0 Dehydration; D63.8 Anemia in other chronic diseases classified elsewhere; E87.3 Alkalosis; C78.7 Secondary malignant neoplasm of liver and intrahepatic bile duct; I48.91 Unspecified atrial fibrillation; E83.52 Hypercalcemia; D72.829 Elevated white blood cell count, unspecified; D75.839 Thrombocytosis, unspecified; R13.12 Dysphagia, oropharyngeal phase; Z68.30 Body mass index [BMI] 30.0-30.9, adult; D50.9 Iron deficiency anemia, unspecified; E87.1 Hypo-osmolality and hyponatremia; E87.5 Hyperkalemia; I47.1 Supraventricular tachycardia; I48.92 Unspecified atrial flutter; I70.201 Unspecified atherosclerosis of native arteries of extremities, right leg; K26.9 Duodenal ulcer, unspecified as acute or chronic, without hemorrhage or perforation; K29.70 Gastritis, unspecified, without bleeding; K74.60 Unspecified cirrhosis of liver; K82.8 Other specified diseases of gallbladder; R47.02 Dysphasia; N28.1 Cyst of kidney, acquired; Z87.891 Personal history of nicotine dependence; Z51.5 Encounter for palliative care; Z85.89 Personal history of malignant neoplasm of other organs and systems; Z78.1 Physical restraint status; Z82.49 Family history of ischemic heart disease and other diseases of the circulatory system; Z91.19 Patient's noncompliance with other medical treatment and regimen; Z99.11 Dependence on respirator [ventilator] status; Z93.1 Gastrostomy status; N39.0 Urinary tract infection, site not specified
CPT/HCPCS: 31500; 32555; 36415; 36600; 71045; 71275; 74018; 74230; 76604; 76700; 76937; 80048; 80053; 80076; 80162; 80202; 80305; 81003; 82040; 82105; 82140; 82306; 82330; 82375; 82378; 82550; 82553; 82607; 82652; 82746; 82805; 82962; 83540; 83550; 83605; 83615; 83735; 83880; 83970; 83986; 84100; 84134; 84145; 84155; 84478; 84484; 85014; 85018; 85025; 85027; 85049; 85384; 86850; 86900; 86920; 87070; 87077; 87106; 87186; 87426; 88108; 88312; 92610; 92611; 93005; 93306; 93923; 93970; 93971; 94002; 94003; 94640; 94660; 97110; 97162; 97164; 97166; 97168; 97530; 99285; A6261; C1725; C1893; J0282; J0330; J0456; J0690; J0692; J0696; J1160; J1650; J2185; J2270; J2370; J2405; J2430; J2704; J2765; J3010; J3370; J3475; J3480; J3490; J7030; J7040; J7042; J7050; J7060; J7070; J7512; P9016; P9041; P9047; Q9967; A4315